=== PATIENT | female | born 1945 | race Two or more races ===

== ENCOUNTER → 2018-11-07 | Outpatient (CLI) | payer OTHER ==
[~2018-11-07] MED LIST: ASPI81CH43 PO; ASPIRIN; ATOR20TA50 PO; CAR3125T PO; CEPH-37 PO; CLOP75TA28 PO; ENA2.5T PO; VENL75CA3 PO
[2018-11-07 12:00] LABS: Basophils # (auto) 0 uL; Basophils % (auto) 0.8 % (0.0-2.0); Eosinophils # (auto) 0.3 uL; Eosinophils % (auto) 5.5 % (0.0-7.0); Hematocrit 38.5 % (36.0-46.0); Hemoglobin 12.8 g/dL (12.2-16.2); Lymphocytes # (auto) 0.9 uL; Lymphocytes % (auto) 17.2 % (10.0-50.0); Mean Corpuscular Hemoglobin 30.3 pg (28.0-32.0); Mean Corpuscular Hgb Conc. 33.2 g/dL (32.0-36.0); Mean Corpuscular Volume 91.1 fL (80.0-100.0); Monocytes # (auto) 0.4 uL; Monocytes % (auto) 8.2 % (0.0-12.0); Neutrophils # (auto) 3.6 uL; Neutrophils % (auto) 68.3 % (37.0-80.0); Nucleated Red Blood Cells % 0.4 %; Platelet Count (auto) 182 10^3/uL (140-450); Red Blood Cells 4.23 10^6/uL (4.0-5.20); Red Cell Distribution Width 14.5 % (11.8-14.3); White Blood Cell 5.3 10^3/uL (4.4-10.8)
[2018-11-07 12:05] LABS: Urine Blood 1+ /uL (Negative); Urine Specific Gravity 1.015 (1.001-1.035)
[2018-11-07 12:28] LABS: Potassium 3.8 mmol/L (3.5-5.1)
[2018-11-07 12:37] LABS: Free T4 (Free Thyroxine) 1.03 ng/dL (0.89-1.76)
[2018-11-07 12:40] LABS: Albumin 3.5 g/dL (3.4-5.0); BUN/Creatinine Ratio 22.4; Calcium 8.2 mg/dL (8.5-10.1)
[2018-11-07 13:58] LABS: Bilirubin, Total 0.4 mg/dL (0.2-1.0); Total Protein 7.8 g/dL (6.4-8.2)
== END | disposition home or self-care (01) ==
LOC: Rad HDHVI 08:41
PROVIDERS: ATTEND Internal Medicine
DX: R06.00 Dyspnea, unspecified (principal); E03.9 Hypothyroidism, unspecified; M46.00 Spinal enthesopathy, site unspecified; E11.9 Type 2 diabetes mellitus without complications; E55.9 Vitamin D deficiency, unspecified; D51.9 Vitamin B12 deficiency anemia, unspecified; N39.0 Urinary tract infection, site not specified
CPT/HCPCS: 36415; 71046; 80053; 80061; 81003; 82306; 82607; 83036; 84439; 84443; 85025; 87086

== ENCOUNTER 2018-12-22 18:09 | Inpatient (IN) | payer MEDICARE, OTHER | END 2018-12-26 18:30 | LOC: TELE 12-23 06:11 → ER 18:09 → TELE-EAST 12-23 09:14 | DX: N39.0 Urinary tract infection, site not specified (principal); E11.9 Type 2 diabetes mellitus without complications; R41.82 Altered mental status, unspecified; E78.00 Pure hypercholesterolemia, unspecified; R62.7 Adult failure to thrive; I10 Essential (primary) hypertension; Z79.02 Long term (current) use of antithrombotics/antiplatelets; Z79.82 Long term (current) use of aspirin; E66.9 Obesity, unspecified; Z68.25 Body mass index [BMI] 25.0-25.9, adult ==

== ENCOUNTER → 2019-01-13 | Outpatient (CLI) | payer MEDICARE, OTHER ==
[~2019-01-13] MED LIST changes: -ASPIRIN; -CEPH-37 PO
[2019-01-13 12:25] LABS: Basophils # (auto) 0 uL; Basophils % (auto) 0.7 % (0.0-2.0); Eosinophils # (auto) 0.2 uL; Eosinophils % (auto) 3.1 % (0.0-7.0); Hematocrit 42.5 % (36.0-46.0); Lymphocytes # (auto) 1.7 uL; Lymphocytes % (auto) 26.2 % (10.0-50.0); Mean Corpuscular Hemoglobin 30.2 pg (28.0-32.0); Mean Corpuscular Hgb Conc. 33.1 g/dL (32.0-36.0); Mean Corpuscular Volume 91.3 fL (80.0-100.0); Monocytes # (auto) 0.5 uL; Monocytes % (auto) 7.6 % (0.0-12.0); Neutrophils % (auto) 62.4 % (37.0-80.0); Nucleated Red Blood Cells % 0.2 %; Platelet Count (auto) 162 10^3/uL (140-450); Red Blood Cells 4.66 10^6/uL (4.0-5.20); Red Cell Distribution Width 14.7 % (11.8-14.3); White Blood Cell 6.4 10^3/uL (4.4-10.8)
[2019-01-13 12:35] LABS: Albumin 3.7 g/dL (3.4-5.0); BUN/Creatinine Ratio 21.1; Calcium 9.3 mg/dL (8.5-10.1); Potassium 4.5 mmol/L (3.5-5.1)
[2019-01-13 12:37] LABS: Bilirubin, Total 0.4 mg/dL (0.2-1.0); Total Protein 7.5 g/dL (6.4-8.2)
== END | disposition home or self-care (01) ==
LOC: LAB 09:26
PROVIDERS: ATTEND Internal Medicine
DX: D64.9 Anemia, unspecified (principal); I12.9 Hypertensive chronic kidney disease with stage 1 through stage 4 chronic kidney disease, or unspecified chronic kidney disease; N18.3 Chronic kidney disease, stage 3 (moderate)
CPT/HCPCS: 36415; 80053; 85025

== ENCOUNTER 2019-02-04 17:28 | Emergency (ER) | payer MEDICARE, OTHER ==
[~2019-02-04] VITALS: Ht 162.6 cm; Wt 69.9 kg
[2019-02-04 17:57] LABS: Basophils # (auto) 0.1 uL; Basophils % (auto) 0.7 % (0.0-2.0); Eosinophils # (auto) 0.2 uL; Eosinophils % (auto) 2.4 % (0.0-7.0); Hematocrit 43.7 % (36.0-46.0); Lymphocytes # (auto) 2.3 uL; Lymphocytes % (auto) 30.2 % (10.0-50.0); Mean Corpuscular Hgb Conc. 34.4 g/dL (32.0-36.0); Mean Corpuscular Volume 90.2 fL (80.0-100.0); Monocytes # (auto) 0.7 uL; Monocytes % (auto) 8.9 % (0.0-12.0); Neutrophils # (auto) 4.4 uL; Neutrophils % (auto) 57.8 % (37.0-80.0); Platelet Count (auto) 172 10^3/uL (140-450); Red Blood Cells 4.84 10^6/uL (4.0-5.20); Red Cell Distribution Width 14.5 % (11.8-14.3); White Blood Cell 7.6 10^3/uL (4.4-10.8)
[2019-02-04] MEDS ORDERED: SODIUM CHLORIDE 0.9% 1,000 ML IVB ONE (18:05)
[2019-02-04 18:14] LABS: Alanine Aminotransferase 25 U/L (13-56); Albumin 4.1 g/dL (3.4-5.0); Anion Gap 10 (5-15); Aspartate Aminotransferase 23 U/L (15-37); BUN/Creatinine Ratio 14.7; Blood Alcohol < 3.0 mg/dL (0-5); Blood Urea Nitrogen 15 mg/dL (7-18); Calcium 8.9 mg/dL (8.5-10.1); Carbon Dioxide 25 mmol/L (21-32); Chloride 104 mmol/L (98-107); GFR African American 68 mL/min; GFR Non-African American 56 mL/min; Glucose 147 mg/dL (74-106); Potassium 4.2 mmol/L (3.5-5.1); Sodium 139 mmol/L (136-145)
[2019-02-04 18:17] LABS: Alkaline Phosphatase 96 U/L (45-117); Bilirubin, Total 0.7 mg/dL (0.2-1.0); Total Protein 8.4 g/dL (6.4-8.2)
[2019-02-04 18:51] LABS: Partial Thromboplastin Time 24.6 sec (23.64-32.05)
[2019-02-04 18:58] LABS: Alcohol, Urine < 3.0 mg/dL (0-5); Amphetamine Screen, Urine NEGATIVE (NEGATIVE); Barbiturate Scree,Urine NEGATIVE (NEGATIVE); Benzodiazephine Screen, Urine NEGATIVE (NEGATIVE); Cannabinoid Screen, Urine NEGATIVE (NEGATIVE); Cocaine Screen, Urine NEGATIVE (NEGATIVE); Opiate Scree,Urine NEGATIVE (NEGATIVE); Phencyclidine Screen, Urine NEGATIVE (NEGATIVE)
[2019-02-04 19:02] LABS: Urine Bacteria NONE SEEN /hpf (None Seen); Urine Blood Negative /uL (Negative); Urine Hyaline Cast FEW /lpf (0 - 2); Urine Specific Gravity 1.013 (1.001-1.035); Urine WBC 11 /hpf (0 - 5)
[2019-02-04] MEDS ORDERED: cefTRIAXone 1GM/50ML D5W 50 ML IV ONE (19:15)
[2019-02-04 20:08] VITALS: BP 149/70
== END 2019-02-04 22:21 | disposition home or self-care (01) ==
LOC: ER 17:35
DX: F41.9 Anxiety disorder, unspecified (principal); N39.0 Urinary tract infection, site not specified; F32.9 Major depressive disorder, single episode, unspecified; R41.0 Disorientation, unspecified; I25.10 Atherosclerotic heart disease of native coronary artery without angina pectoris; E11.9 Type 2 diabetes mellitus without complications; E78.5 Hyperlipidemia, unspecified; I10 Essential (primary) hypertension; Z98.61 Coronary angioplasty status; Z87.891 Personal history of nicotine dependence
CPT/HCPCS: 36415; 70450; 71045; 80053; 80307; 80320; 81001; 83735; 84484; 85025; 85610; 85730; 93005; 94761; 96361; 96365; 99284; J0696

== ENCOUNTER → 2019-03-04 | Outpatient (CLI) | payer MEDICARE, OTHER ==
[2019-03-04 12:09] LABS: Urine Blood 1+ /uL (Negative); Urine Specific Gravity 1.022 (1.001-1.035)
== END | disposition home or self-care (01) ==
LOC: LAB 09:30
PROVIDERS: ATTEND Internal Medicine
DX: N39.0 Urinary tract infection, site not specified (principal)
CPT/HCPCS: 81003; 87086

== ENCOUNTER → 2019-03-09 | Outpatient (CLI) | payer MEDICARE, OTHER ==
[2019-03-09 16:19] LABS: Urine Blood Negative /uL (Negative)
== END | disposition home or self-care (01) ==
LOC: LAB 11:51
PROVIDERS: ATTEND Internal Medicine
DX: N39.0 Urinary tract infection, site not specified (principal)
CPT/HCPCS: 81003; 87086; 87088

== ENCOUNTER → 2019-09-07 | Outpatient (CLI) | payer MEDICARE, OTHER ==
[~2019-09-07] MED LIST changes: -ENA2.5T PO; +ENAL2.5T2 PO
[2019-09-07 11:56] LABS: Basophils # (auto) 0 uL; Basophils % (auto) 0.8 % (0.0-2.0); Eosinophils # (auto) 0.2 uL; Eosinophils % (auto) 3.4 % (0.0-7.0); Hematocrit 41.6 % (36.0-46.0); Hemoglobin 13.8 g/dL (12.2-16.2); Lymphocytes # (auto) 1.6 uL; Mean Corpuscular Hemoglobin 31.4 pg (28.0-32.0); Mean Corpuscular Hgb Conc. 33.1 g/dL (32.0-36.0); Mean Corpuscular Volume 94.8 fL (80.0-100.0); Monocytes # (auto) 0.6 uL; Monocytes % (auto) 9.9 % (0.0-12.0); Neutrophils # (auto) 3.8 uL; Neutrophils % (auto) 60.9 % (37.0-80.0); Platelet Count (auto) 180 10^3/uL (140-450); Red Blood Cells 4.39 10^6/uL (4.0-5.20); Red Cell Distribution Width 15.6 % (11.8-14.3); White Blood Cell 6.3 10^3/uL (4.4-10.8)
[2019-09-07 12:12] LABS: Albumin 3.8 g/dL (3.4-5.0); Calcium 9.2 mg/dL (8.5-10.1); Potassium 4.4 mmol/L (3.5-5.1)
[2019-09-07 12:14] LABS: Free T4 (Free Thyroxine) 1.03 ng/dL (0.89-1.76)
[2019-09-07 12:17] LABS: BUN/Creatinine Ratio 16.7; Bilirubin, Total 0.4 mg/dL (0.2-1.0); Total Protein 7.5 g/dL (6.4-8.2)
[2019-09-07 12:21] LABS: Urine Specific Gravity 1.015 (1.001-1.035)
[2019-09-07 12:22] LABS: Urine Blood Negative /uL (Negative)
== END | disposition home or self-care (01) ==
LOC: LAB 08:33
PROVIDERS: ATTEND Internal Medicine
DX: E03.9 Hypothyroidism, unspecified (principal); K90.9 Intestinal malabsorption, unspecified; N39.0 Urinary tract infection, site not specified; D51.9 Vitamin B12 deficiency anemia, unspecified; E11.42 Type 2 diabetes mellitus with diabetic polyneuropathy; Z79.899 Other long term (current) drug therapy
CPT/HCPCS: 36415; 80053; 80061; 81003; 82306; 82607; 83036; 84439; 84443; 85025

== ENCOUNTER → 2019-10-16 | Outpatient (CLI) | payer MEDICARE, OTHER | END | disposition home or self-care (01) | LOC: Rad HDHVI 10:51 | PROVIDERS: ATTEND Internal Medicine | DX: I70.0 Atherosclerosis of aorta (principal); M85.80 Other specified disorders of bone density and structure, unspecified site; R06.02 Shortness of breath; E11.9 Type 2 diabetes mellitus without complications; Z90.49 Acquired absence of other specified parts of digestive tract | CPT/HCPCS: 71046 ==

== ENCOUNTER → 2020-03-01 | Outpatient (CLI) | payer MEDICARE, OTHER ==
[2020-03-01 11:23] LABS: Basophils # (auto) 0 10 ^3/uL (0-0.2); Basophils % (auto) 0.8 % (0.0-2.0); Eosinophils # (auto) 0.2 10 ^3/uL (0-0.8); Eosinophils % (auto) 3.7 % (0.0-7.0); Lymphocytes # (auto) 1.2 10 ^3/uL (0.4-5.4); Lymphocytes % (auto) 20.2 % (10.0-50.0); Mean Corpuscular Hemoglobin 30.5 pg (28.0-32.0); Mean Corpuscular Hgb Conc. 32.4 g/dL (32.0-36.0); Mean Corpuscular Volume 94.2 fL (80.0-100.0); Monocytes # (auto) 0.5 10 ^3/uL (0-1.3); Monocytes % (auto) 8.2 % (0.0-12.0); Neutrophils # (auto) 3.8 10 ^3/uL (1.6-8.6); Neutrophils % (auto) 67.1 % (37.0-80.0); Platelet Count (auto) 160 10^3/uL (140-450); Red Blood Cells 4.25 10^6/uL (4.0-5.20); Red Cell Distribution Width 15.5 % (11.8-14.3); White Blood Cell 5.7 10^3/uL (4.4-10.8)
[2020-03-01 11:25] LABS: Urine Blood Negative /uL (Negative); Urine Specific Gravity 1.022 (1.001-1.035)
[2020-03-01 11:59] LABS: Albumin 3.5 g/dL (3.4-5.0); Calcium 8.5 mg/dL (8.5-10.1); Potassium 4.6 mmol/L (3.5-5.1)
[2020-03-01 12:04] LABS: BUN/Creatinine Ratio 18.5; Bilirubin, Total 0.5 mg/dL (0.2-1.0); Total Protein 7.1 g/dL (6.4-8.2)
== END | disposition home or self-care (01) ==
LOC: LAB 10:30
PROVIDERS: ATTEND Internal Medicine
DX: I10 Essential (primary) hypertension (principal)
CPT/HCPCS: 36415; 80053; 81003; 85025

== ENCOUNTER → 2020-03-30 | Outpatient (CLI) | payer MEDICARE, OTHER ==
[~2020-03-30] MED LIST changes: +ENAL2.5T11 PO; -ENAL2.5T2 PO
[2020-03-30 10:17] LABS: Basophils # (auto) 0.1 10 ^3/uL (0-0.2); Basophils % (auto) 0.8 % (0.0-2.0); Eosinophils # (auto) 0.2 10 ^3/uL (0-0.8); Eosinophils % (auto) 3.8 % (0.0-7.0); Hematocrit 37.4 % (36.0-46.0); Hemoglobin 12.2 g/dL (12.2-16.2); Lymphocytes # (auto) 1.6 10 ^3/uL (0.4-5.4); Mean Corpuscular Hemoglobin 30.5 pg (28.0-32.0); Mean Corpuscular Hgb Conc. 32.6 g/dL (32.0-36.0); Mean Corpuscular Volume 93.3 fL (80.0-100.0); Monocytes # (auto) 0.7 10 ^3/uL (0-1.3); Monocytes % (auto) 10.7 % (0.0-12.0); Neutrophils # (auto) 3.9 10 ^3/uL (1.6-8.6); Neutrophils % (auto) 60.7 % (37.0-80.0); Platelet Count (auto) 151 10^3/uL (140-450); Red Cell Distribution Width 15.1 % (11.8-14.3); White Blood Cell 6.5 10^3/uL (4.4-10.8)
[2020-03-30 10:39] LABS: Calcium 8.5 mg/dL (8.5-10.1); Potassium 4.3 mmol/L (3.5-5.1)
[2020-03-30 10:41] LABS: BUN/Creatinine Ratio 27.8; INR 1.05 (0.9-1.15); Partial Thromboplastin Time 25.4 sec (23.0-31.2)
[2020-03-30 11:17] LABS: Urine Blood Negative /uL (Negative); Urine Specific Gravity 1.033 (1.001-1.035)
== END | disposition home or self-care (01) ==
LOC: LAB 09:26
PROVIDERS: ATTEND Internal Medicine
DX: Z01.812 Encounter for preprocedural laboratory examination (principal); D64.9 Anemia, unspecified; N39.0 Urinary tract infection, site not specified; I25.10 Atherosclerotic heart disease of native coronary artery without angina pectoris; I10 Essential (primary) hypertension; K90.9 Intestinal malabsorption, unspecified; Z95.5 Presence of coronary angioplasty implant and graft; Z79.02 Long term (current) use of antithrombotics/antiplatelets
CPT/HCPCS: 36415; 80048; 81003; 85025; 85610; 85730

== ENCOUNTER → 2020-05-03 | Outpatient (CLI) | payer MEDICARE, OTHER | END | disposition home or self-care (01) | LOC: Rad HDHVI 15:27 | PROVIDERS: ATTEND Internal Medicine | DX: I08.0 Rheumatic disorders of both mitral and aortic valves (principal); I25.10 Atherosclerotic heart disease of native coronary artery without angina pectoris; I73.9 Peripheral vascular disease, unspecified; R06.02 Shortness of breath | CPT/HCPCS: 93306 ==

== ENCOUNTER → 2020-05-11 | Outpatient (CLI) | payer MEDICARE, OTHER ==
[~2020-05-11] VITALS: Ht 162.6 cm; Wt 53.5 kg
[~2020-05-11] MED LIST changes: +ADENOSINE 45 MG in GIVE UN-DILUTED 0 ML IV ONE; +ADENOSINE 90 MG/30 ML INJ IV ONE
== END | disposition home or self-care (01) ==
LOC: Rad HDHVI 09:37
PROVIDERS: ATTEND Internal Medicine
DX: I25.10 Atherosclerotic heart disease of native coronary artery without angina pectoris (principal); I10 Essential (primary) hypertension; E78.00 Pure hypercholesterolemia, unspecified; E11.9 Type 2 diabetes mellitus without complications
CPT/HCPCS: 78452; 93005; 96374; 96375; A9500; J0153

== ENCOUNTER → 2021-02-16 | Outpatient (CLI) | payer MEDICARE, OTHER ==
[~2021-02-16] MED LIST changes: -ADENOSINE 45 MG in GIVE UN-DILUTED 0 ML IV ONE; -ADENOSINE 90 MG/30 ML INJ IV ONE
== END | disposition home or self-care (01) ==
LOC: Rad HDHVI 13:04
PROVIDERS: ATTEND Internal Medicine
DX: I35.1 Nonrheumatic aortic (valve) insufficiency (principal); I11.9 Hypertensive heart disease without heart failure; R06.02 Shortness of breath
CPT/HCPCS: 93306

== ENCOUNTER → 2021-03-03 | Outpatient (CLI) | payer MEDICARE, OTHER ==
[2021-03-03 11:48] LABS: Urine Blood Negative /uL (Negative); Urine Specific Gravity 1.012 (1.001-1.035)
[2021-03-03 11:53] LABS: Basophils # (auto) 0.1 10 ^3/uL (0-0.2); Basophils % (auto) 0.9 % (0.0-2.0); Eosinophils # (auto) 0.2 10 ^3/uL (0-0.8); Eosinophils % (auto) 3.5 % (0.0-7.0); Hematocrit 35.6 % (36.0-46.0); Hemoglobin 11.9 g/dL (12.2-16.2); Lymphocytes # (auto) 1.5 10 ^3/uL (0.4-5.4); Lymphocytes % (auto) 22.3 % (10.0-50.0); Mean Corpuscular Hemoglobin 30.7 pg (28.0-32.0); Mean Corpuscular Hgb Conc. 33.5 g/dL (32.0-36.0); Mean Corpuscular Volume 91.7 fL (80.0-100.0); Monocytes # (auto) 0.6 10 ^3/uL (0-1.3); Monocytes % (auto) 9.5 % (0.0-12.0); Neutrophils # (auto) 4.3 10 ^3/uL (1.6-8.6); Neutrophils % (auto) 63.8 % (37.0-80.0); Nucleated Red Blood Cells % 0.1 %; Platelet Count (auto) 200 10^3/uL (140-450); Red Blood Cells 3.88 10^6/uL (4.0-5.20); Red Cell Distribution Width 15.1 % (11.8-14.3); White Blood Cell 6.7 10^3/uL (4.4-10.8)
[2021-03-03 11:57] LABS: Potassium 4.2 mmol/L (3.5-5.1)
[2021-03-03 12:05] LABS: Albumin 3.5 g/dL (3.4-5.0); BUN/Creatinine Ratio 20.6; Bilirubin, Total 0.4 mg/dL (0.2-1.0); Calcium 8.6 mg/dL (8.5-10.1); Free T4 (Free Thyroxine) 1.18 ng/dL (0.89-1.76); Total Protein 7.4 g/dL (6.4-8.2)
== END | disposition home or self-care (01) ==
LOC: CHF HDHVI 08:42
PROVIDERS: ATTEND Internal Medicine Cardiovascular Disease
DX: D51.3 Other dietary vitamin B12 deficiency anemia (principal); I10 Essential (primary) hypertension; E11.9 Type 2 diabetes mellitus without complications; E55.9 Vitamin D deficiency, unspecified; D64.9 Anemia, unspecified; R00.2 Palpitations; R53.1 Weakness; R30.0 Dysuria
CPT/HCPCS: 36415; 80053; 80061; 81003; 82306; 82607; 83036; 84439; 84443; 85025; 85049; 87086

== ENCOUNTER → 2021-03-14 | Outpatient (CLI) | payer MEDICARE, OTHER | END | disposition home or self-care (01) | LOC: LAB 11:34 | PROVIDERS: ATTEND Internal Medicine | DX: R94.4 Abnormal results of kidney function studies (principal) | CPT/HCPCS: 36415; 82565 ==

== ENCOUNTER → 2021-03-15 | Outpatient (CLI) | payer MEDICARE, OTHER ==
[~2021-03-15] MED LIST changes: +IOHEXOL 350 MG/ML 100ML IJ ONE
[2021-03-15 13:10] VITALS: BP 108/38
[2021-03-15 13:32] VITALS: BP 111/41
== END | disposition home or self-care (01) ==
LOC: Rad HDHVI 13:03
PROVIDERS: ATTEND Internal Medicine
DX: I67.2 Cerebral atherosclerosis (principal); G31.89 Other specified degenerative diseases of nervous system; G96.9 Disorder of central nervous system, unspecified
CPT/HCPCS: 70470; G0463; Q9967

== ENCOUNTER → 2021-07-25 | Outpatient (CLI) | payer MEDICARE, OTHER ==
[~2021-07-25] MED LIST changes: -IOHEXOL 350 MG/ML 100ML IJ ONE
== END | disposition home or self-care (01) ==
LOC: LAB 10:55
PROVIDERS: ATTEND Internal Medicine
DX: N39.0 Urinary tract infection, site not specified (principal)
CPT/HCPCS: 87086

== ENCOUNTER → 2021-11-02 | Outpatient (CLI) | payer MEDICARE, OTHER ==
[2021-11-03 15:35] LABS: Urine Blood Negative /uL (Negative); Urine Specific Gravity 1.012 (1.001-1.035)
== END | disposition home or self-care (01) ==
LOC: LAB 10:55
PROVIDERS: ATTEND Internal Medicine
DX: N39.0 Urinary tract infection, site not specified (principal)
CPT/HCPCS: 81003; 87086

== ENCOUNTER 2021-11-19 19:57 | Inpatient (IN) | payer MEDICARE, OTHER ==
[~2021-11-19] VITALS: Ht 162.6 cm; Wt 62.8 kg
[2021-11-19 23:56] LABS: Basophils # (auto) 0.1 10 ^3/uL (0-0.2); Basophils % (auto) 0.7 % (0.0-2.0); Eosinophils # (auto) 0.2 10 ^3/uL (0-0.8); Eosinophils % (auto) 2.5 % (0.0-7.0); Hematocrit 31.5 % (36.0-46.0); Hemoglobin 10.4 g/dL (12.2-16.2); Lymphocytes # (auto) 1.5 10 ^3/uL (0.4-5.4); Lymphocytes % (auto) 19.3 % (10.0-50.0); Mean Corpuscular Hemoglobin 28.4 pg (28.0-32.0); Mean Corpuscular Hgb Conc. 33.1 g/dL (32.0-36.0); Mean Corpuscular Volume 85.9 fL (80.0-100.0); Monocytes # (auto) 0.7 10 ^3/uL (0-1.3); Monocytes % (auto) 9.1 % (0.0-12.0); Neutrophils # (auto) 5.5 10 ^3/uL (1.6-8.6); Neutrophils % (auto) 68.4 % (37.0-80.0); Red Blood Cells 3.66 10^6/uL (4.0-5.20); Red Cell Distribution Width 15.3 % (11.8-14.3)
[2021-11-20 00:16] LABS: Chloride 111 mmol/L (98-107); Potassium 4.6 mmol/L (3.5-5.1); Sodium 140 mmol/L (136-145)
[2021-11-20 00:18] LABS: Lactic Acid w/Reflex 4.3 mmol/L (0.4-2.0)
[2021-11-20 00:20] LABS: Alanine Aminotransferase 29 U/L (13-56); Albumin 3.2 g/dL (3.4-5.0); Anion Gap 6 (5-15); Aspartate Aminotransferase 30 U/L (15-37); Blood Alcohol < 3.0 mg/dL (0-5); Blood Urea Nitrogen 23 mg/dL (7-18); Carbon Dioxide 23 mmol/L (21-32); GFR African American 72 mL/min; GFR Non-African American 60 mL/min; Glucose 94 mg/dL (74-106)
[2021-11-20 00:23] LABS: Alkaline Phosphatase 60 U/L (45-117); Bilirubin, Total 0.2 mg/dL (0.2-1.0); Total Protein 6.4 g/dL (6.4-8.2)
[2021-11-20 00:38] LABS: Urine Bacteria FEW /hpf (None Seen); Urine Blood Negative /uL (Negative); Urine Hyaline Cast FEW /lpf (0 - 2); Urine Mucus FEW (None Seen); Urine Specific Gravity 1.026 (1.001-1.035); Urine WBC 1 /hpf (0 - 5)
[2021-11-20] MEDS ORDERED: SODIUM CHLORIDE 0.9% 1,000 ML IV ONE ×3 (00:45→10:30)
[2021-11-20] MEDS ORDERED: PIPERACILLIN-TAZOB 3.375GM 100 ML IV ONE (04:30)
[2021-11-20] MEDS ORDERED: ONDANSETRON HCL 4 MG/2 ML VIAL IV PRN (05:30)
[2021-11-20] MEDS ORDERED: MORPHINE SULFATE INJECTION 2 MG/ML SYRG IV PRN (05:30)
[2021-11-20] MEDS ORDERED: NITROGLYCERIN 0.4 MG SL TAB SL PRN (05:30)
[2021-11-20] MEDS ORDERED: DEXTROSE (50%) 50ML SYRG IV PRN (05:30)
[2021-11-20] MEDS ORDERED: cloNIDine HCL 0.1 MG TAB PO PRN (05:30)
[2021-11-20] MEDS: ACCU-CHEK COMFORT CURVE STRIP VI SCH ×4 (07:42→23:03)
[2021-11-20] MEDS: InsuLIN REG 1unit/0.01ml Soln (100units/ml) SC SCH ×4 (07:43→23:04)
[2021-11-20 10:17] VITALS: BP 141/48
[2021-11-20 11:14] VITALS: BP 141/48
[2021-11-20] MEDS: CARVEDILOL 3.125 MG TAB PO SCH ×2 (12:40→23:02)
[2021-11-20] MEDS: cefTRIAXone 1GM/50ML D5W 50 ML IV SCH (12:41)
[2021-11-20] MEDS: ENOXAPARIN SOD 40 MG/0.4 ML SYRINGE SC SCH (12:41)
[2021-11-20] MEDS: CLOPIDOGREL BISULFATE 75 MG TAB PO SCH (12:41)
[2021-11-20] MEDS: PANTOPRAZOLE 40 MG TAB PO SCH (12:41)
[2021-11-20] MEDS: ENALAPRIL MALEATE 2.5 MG TAB PO SCH ×2 (12:43→23:03)
[2021-11-20 13:00] VITALS: BP 141/62
[2021-11-20 17:00] VITALS: BP 118/49
[2021-11-20 20:00] VITALS: BP 132/62
[2021-11-20 21:48] VITALS: BP 132/62
[2021-11-20] MEDS: DONEPEZIL HYDROCHLORIDE 5 MG TAB PO SCH (23:01)
[2021-11-20] MEDS: ATORVASTATIN 20 MG TAB PO SCH (23:02)
[2021-11-21] VITALS (7 sets, daily range): BP systolic 125–148; BP diastolic 49–75
[2021-11-21 05:06] LABS: Basophils # (auto) 0.1 10 ^3/uL (0-0.2); Basophils % (auto) 0.9 % (0.0-2.0); Eosinophils # (auto) 0.2 10 ^3/uL (0-0.8); Hematocrit 28.4 % (36.0-46.0); Hemoglobin 9.6 g/dL (12.2-16.2); Lymphocytes # (auto) 1.4 10 ^3/uL (0.4-5.4); Lymphocytes % (auto) 23.8 % (10.0-50.0); Mean Corpuscular Hemoglobin 28.7 pg (28.0-32.0); Mean Corpuscular Hgb Conc. 33.9 g/dL (32.0-36.0); Mean Corpuscular Volume 84.8 fL (80.0-100.0); Monocytes # (auto) 0.6 10 ^3/uL (0-1.3); Monocytes % (auto) 10.5 % (0.0-12.0); Neutrophils # (auto) 3.5 10 ^3/uL (1.6-8.6); Neutrophils % (auto) 60.8 % (37.0-80.0); Nucleated Red Blood Cells % 0.1 %; Red Blood Cells 3.35 10^6/uL (4.0-5.20); Red Cell Distribution Width 15.5 % (11.8-14.3); White Blood Cell 5.7 10^3/uL (4.4-10.8)
[2021-11-21 05:35] LABS: Potassium 3.7 mmol/L (3.5-5.1)
[2021-11-21 05:39] LABS: BUN/Creatinine Ratio 17.8; Calcium 8.5 mg/dL (8.5-10.1)
[2021-11-21] MEDS: ACCU-CHEK COMFORT CURVE STRIP VI SCH ×4 (06:15→21:58)
[2021-11-21] MEDS: InsuLIN REG 1unit/0.01ml Soln (100units/ml) SC SCH ×4 (06:15→21:53)
[2021-11-21] MEDS: cefTRIAXone 1GM/50ML D5W 50 ML IV SCH (09:54)
[2021-11-21] MEDS: ENOXAPARIN SOD 40 MG/0.4 ML SYRINGE SC SCH (09:55)
[2021-11-21] MEDS: PANTOPRAZOLE 40 MG TAB PO SCH (09:55)
[2021-11-21] MEDS: ENALAPRIL MALEATE 2.5 MG TAB PO SCH ×2 (10:03→21:55)
[2021-11-21] MEDS: CLOPIDOGREL BISULFATE 75 MG TAB PO SCH (10:05)
[2021-11-21] MEDS: CARVEDILOL 3.125 MG TAB PO SCH ×2 (10:05→21:55)
[2021-11-21] MEDS ORDERED: LORazepam 2MG/ML-1ML VIAL IV PRN (20:00)
[2021-11-21 20:48] LABS: Folate (Folic Acid) 18.44 ng/mL (5.38-24)
[2021-11-21] MEDS: ATORVASTATIN 20 MG TAB PO SCH (21:54)
[2021-11-21] MEDS: DONEPEZIL HYDROCHLORIDE 5 MG TAB PO SCH (21:54)
[2021-11-22 05:32] VITALS: BP 137/46
[2021-11-22] MEDS: ACCU-CHEK COMFORT CURVE STRIP VI SCH ×4 (06:09→21:12)
[2021-11-22] MEDS: InsuLIN REG 1unit/0.01ml Soln (100units/ml) SC SCH ×4 (06:10→21:57)
[2021-11-22 06:23] LABS: Basophils # (auto) 0.1 10 ^3/uL (0-0.2); Basophils % (auto) 0.8 % (0.0-2.0); Eosinophils # (auto) 0.3 10 ^3/uL (0-0.8); Eosinophils % (auto) 4.5 % (0.0-7.0); Hematocrit 28.4 % (36.0-46.0); Hemoglobin 9.7 g/dL (12.2-16.2); Lymphocytes # (auto) 1.3 10 ^3/uL (0.4-5.4); Lymphocytes % (auto) 18.6 % (10.0-50.0); Mean Corpuscular Hemoglobin 28.7 pg (28.0-32.0); Mean Corpuscular Hgb Conc. 34.1 g/dL (32.0-36.0); Mean Corpuscular Volume 84.1 fL (80.0-100.0); Monocytes # (auto) 0.8 10 ^3/uL (0-1.3); Monocytes % (auto) 11.3 % (0.0-12.0); Neutrophils # (auto) 4.5 10 ^3/uL (1.6-8.6); Neutrophils % (auto) 64.8 % (37.0-80.0); Nucleated Red Blood Cells % 0.1 %; Red Blood Cells 3.38 10^6/uL (4.0-5.20); Red Cell Distribution Width 15.7 % (11.8-14.3)
[2021-11-22 06:43] LABS: Calcium 8.6 mg/dL (8.5-10.1); Potassium 3.9 mmol/L (3.5-5.1)
[2021-11-22 06:46] LABS: BUN/Creatinine Ratio 17.2
[2021-11-22 08:00] VITALS: BP 133/52
[2021-11-22 09:00] VITALS: BP 133/52
[2021-11-22] MEDS: cefTRIAXone 1GM/50ML D5W 50 ML IV SCH ×2 (10:13→11:13)
[2021-11-22] MEDS: CLOPIDOGREL BISULFATE 75 MG TAB PO SCH (10:14)
[2021-11-22] MEDS: PANTOPRAZOLE 40 MG TAB PO SCH (10:14)
[2021-11-22] MEDS: ENOXAPARIN SOD 40 MG/0.4 ML SYRINGE SC SCH (10:14)
[2021-11-22] MEDS: CARVEDILOL 3.125 MG TAB PO SCH ×2 (10:15→21:55)
[2021-11-22] MEDS: ENALAPRIL MALEATE 2.5 MG TAB PO SCH ×2 (10:15→21:55)
[2021-11-22 12:23] VITALS: BP 113/61
[2021-11-22 17:14] VITALS: BP 113/60
[2021-11-22] MEDS: DONEPEZIL HYDROCHLORIDE 5 MG TAB PO SCH (21:54)
[2021-11-22] MEDS: ATORVASTATIN 20 MG TAB PO SCH (21:54)
[2021-11-22 22:00] VITALS: BP 135/48
[2021-11-23 05:00] VITALS: BP 127/46
[2021-11-23 06:00] LABS: Basophils # (auto) 0 10 ^3/uL (0-0.2); Basophils % (auto) 0.5 % (0.0-2.0); Eosinophils # (auto) 0.3 10 ^3/uL (0-0.8); Eosinophils % (auto) 4.1 % (0.0-7.0); Hematocrit 27.7 % (36.0-46.0); Hemoglobin 9.3 g/dL (12.2-16.2); Lymphocytes # (auto) 1.4 10 ^3/uL (0.4-5.4); Lymphocytes % (auto) 22.5 % (10.0-50.0); Mean Corpuscular Hemoglobin 28.5 pg (28.0-32.0); Mean Corpuscular Hgb Conc. 33.7 g/dL (32.0-36.0); Mean Corpuscular Volume 84.7 fL (80.0-100.0); Monocytes # (auto) 0.7 10 ^3/uL (0-1.3); Monocytes % (auto) 10.9 % (0.0-12.0); Red Blood Cells 3.27 10^6/uL (4.0-5.20); Red Cell Distribution Width 15.8 % (11.8-14.3); White Blood Cell 6.4 10^3/uL (4.4-10.8)
[2021-11-23] MEDS: InsuLIN REG 1unit/0.01ml Soln (100units/ml) SC SCH (06:14)
[2021-11-23] MEDS: ACCU-CHEK COMFORT CURVE STRIP VI SCH (06:14)
[2021-11-23 06:16] LABS: Calcium 8.4 mg/dL (8.5-10.1); Potassium 3.7 mmol/L (3.5-5.1)
[2021-11-23 08:00] VITALS: BP 100/42
[2021-11-23 09:00] VITALS: BP 100/42
[2021-11-23] MEDS: ENALAPRIL MALEATE 2.5 MG TAB PO SCH (10:00)
[2021-11-23] MEDS: CARVEDILOL 3.125 MG TAB PO SCH (10:00)
[2021-11-23] MEDS: CLOPIDOGREL BISULFATE 75 MG TAB PO SCH (10:24)
[2021-11-23] MEDS: PANTOPRAZOLE 40 MG TAB PO SCH (10:25)
[2021-11-23] MEDS: ENOXAPARIN SOD 40 MG/0.4 ML SYRINGE SC SCH (11:14)
[2021-11-23 14:00] VITALS: BP 102/35
== END 2021-11-23 15:10 | disposition home or self-care (01) | DRG 204 ==
LOC: EDBD 19:57 → ER 19:58 → TELE 11-20 05:18 → TELE-CENTR 11-20 09:10
PROVIDERS: ADMIT Nurse Practitioner; ATTEND Internal Medicine Pulmonary Disease
DX: R55 Syncope and collapse (principal); G93.40 Encephalopathy, unspecified; E44.0 Moderate protein-calorie malnutrition; F03.90 Unspecified dementia, unspecified severity, without behavioral disturbance, psychotic disturbance, mood disturbance, and anxiety; E11.9 Type 2 diabetes mellitus without complications; N39.0 Urinary tract infection, site not specified; E78.5 Hyperlipidemia, unspecified; I25.10 Atherosclerotic heart disease of native coronary artery without angina pectoris; K42.9 Umbilical hernia without obstruction or gangrene; W18.2XXA Fall in (into) shower or empty bathtub, initial encounter; Z20.822 Contact with and (suspected) exposure to COVID-19; I10 Essential (primary) hypertension; Z83.3 Family history of diabetes mellitus; Z90.49 Acquired absence of other specified parts of digestive tract; Z90.710 Acquired absence of both cervix and uterus; Y93.89 Activity, other specified; Y92.89 Other specified places as the place of occurrence of the external cause; Y99.8 Other external cause status; Z68.23 Body mass index [BMI] 23.0-23.9, adult
CPT/HCPCS: 36415; 70450; 70551; 71045; 72125; 74177; 80048; 80053; 80320; 81001; 82607; 82746; 82962; 83605; 83735; 84443; 84484; 85025; 87040; 93005; 93306; 93886; 95819; 96361; 96365; G0378; J0696; J1815; J2543

== ENCOUNTER → 2022-03-14 | Outpatient (CLI) | payer MEDICARE, OTHER ==
[2022-03-14 11:53] LABS: Urine Bacteria MOD /hpf (None Seen); Urine Blood Negative /uL (Negative); Urine Hyaline Cast MOD /lpf (0 - 2); Urine Mucus FEW (None Seen); Urine Specific Gravity 1.023 (1.001-1.035); Urine WBC 158 /hpf (0 - 5)
== END | disposition home or self-care (01) ==
LOC: LAB 10:50
PROVIDERS: ATTEND Internal Medicine
DX: N39.0 Urinary tract infection, site not specified (principal)
CPT/HCPCS: 81001; 87086

== ENCOUNTER → 2022-03-29 | Outpatient (CLI) | payer MEDICARE, OTHER ==
[2022-03-29 16:28] LABS: Basophils # (auto) 0 10 ^3/uL (0-0.2); Basophils % (auto) 0.7 % (0.0-2.0); Eosinophils # (auto) 0.2 10 ^3/uL (0-0.8); Eosinophils % (auto) 3.6 % (0.0-7.0); Hematocrit 34.8 % (36.0-46.0); Lymphocytes # (auto) 1.5 10 ^3/uL (0.4-5.4); Lymphocytes % (auto) 24.9 % (10.0-50.0); Mean Corpuscular Hemoglobin 28.1 pg (28.0-32.0); Mean Corpuscular Hgb Conc. 31.7 g/dL (32.0-36.0); Mean Corpuscular Volume 88.4 fL (80.0-100.0); Monocytes # (auto) 0.5 10 ^3/uL (0-1.3); Monocytes % (auto) 8.6 % (0.0-12.0); Neutrophils # (auto) 3.7 10 ^3/uL (1.6-8.6); Neutrophils % (auto) 62.2 % (37.0-80.0); Nucleated Red Blood Cells % 0.1 %; Red Blood Cells 3.93 10^6/uL (4.0-5.20); Red Cell Distribution Width 18.8 % (11.8-14.3)
[2022-03-29 16:42] LABS: Albumin 3.5 g/dL (3.4-5.0); Calcium 9.2 mg/dL (8.5-10.1); Potassium 4.5 mmol/L (3.5-5.1)
[2022-03-29 16:45] LABS: BUN/Creatinine Ratio 24.5; Bilirubin, Total 0.5 mg/dL (0.2-1.0); Total Protein 6.8 g/dL (6.4-8.2)
== END | disposition home or self-care (01) ==
LOC: LAB 11:55
PROVIDERS: ATTEND Internal Medicine
DX: N39.0 Urinary tract infection, site not specified (principal); I10 Essential (primary) hypertension; D64.9 Anemia, unspecified
CPT/HCPCS: 36415; 80053; 85025

== ENCOUNTER → 2022-04-12 | Outpatient (CLI) | payer MEDICARE, OTHER ==
[2022-04-12 11:55] VITALS: BP 132/44
[2022-04-12 12:10] VITALS: BP 131/50
== END | disposition home or self-care (01) ==
LOC: CHF HDHVI 11:58
PROVIDERS: ATTEND Internal Medicine
DX: I10 Essential (primary) hypertension (principal)
CPT/HCPCS: G0463

== ENCOUNTER 2022-06-11 09:09 | Inpatient (IN) | payer MEDICARE, OTHER ==
[~2022-06-11] VITALS: Ht 152.4 cm; Wt 61.3 kg
[2022-06-11 11:00] LABS: Urine Bacteria MANY /hpf (None Seen); Urine Blood Negative /uL (Negative); Urine Mucus FEW (None Seen); Urine Specific Gravity 1.022 (1.001-1.035); Urine WBC 19 /hpf (0 - 5)
[2022-06-11 11:16] LABS: Basophils # (auto) 0.1 10 ^3/uL (0-0.2); Basophils % (auto) 0.8 % (0.0-2.0); Eosinophils # (auto) 0.1 10 ^3/uL (0-0.8); Eosinophils % (auto) 1.8 % (0.0-7.0); Hematocrit 33.7 % (36.0-46.0); Hemoglobin 10.9 g/dL (12.2-16.2); Lymphocytes # (auto) 1.4 10 ^3/uL (0.4-5.4); Lymphocytes % (auto) 20.4 % (10.0-50.0); Mean Corpuscular Hemoglobin 28.7 pg (28.0-32.0); Mean Corpuscular Hgb Conc. 32.4 g/dL (32.0-36.0); Mean Corpuscular Volume 88.6 fL (80.0-100.0); Monocytes # (auto) 0.5 10 ^3/uL (0-1.3); Monocytes % (auto) 6.8 % (0.0-12.0); Neutrophils # (auto) 4.7 10 ^3/uL (1.6-8.6); Neutrophils % (auto) 70.2 % (37.0-80.0); Red Cell Distribution Width 15.3 % (11.8-14.3); White Blood Cell 6.7 10^3/uL (4.4-10.8)
[2022-06-11 11:37] LABS: Albumin 3.6 g/dL (3.4-5.0); Potassium 4.8 mmol/L (3.5-5.1)
[2022-06-11 11:40] LABS: BUN/Creatinine Ratio 33.7; Bilirubin, Total 0.5 mg/dL (0.2-1.0); Total Protein 7.1 g/dL (6.4-8.2)
[2022-06-11] MEDS ORDERED: ONDANSETRON HCL 4 MG/2 ML VIAL IV PRN (13:30)
[2022-06-11] MEDS ORDERED: cefTRIAXone 1GM/50ML D5W 50 ML IV ONE ×2 (13:30→14:20)
[2022-06-11] MEDS ORDERED: PANTOPRAZOLE 40 MG/10 ML VIAL INJ IV ONE (13:30)
[2022-06-11] MEDS ORDERED: ACETAMINOPHEN 325 MG TAB PO PRN (13:30)
[2022-06-11] MEDS ORDERED: DEXTROSE (50%) 50ML SYRG IV PRN (14:00)
[2022-06-11 14:18] LABS: Cholesterol 109 mg/dL (< 200); HDL Cholesterol 60 mg/dL (40-59); LDL Cholesterol 49 mg/dL (< 100); Triglycerides 96 mg/dL (< 150)
[2022-06-11] MEDS: InsuLIN REG 1unit/0.01ml Soln (100units/ml) SC SCH ×2 (17:00→22:00)
[2022-06-11] MEDS: ACCU-CHEK COMFORT CURVE STRIP VI SCH ×2 (17:17→22:12)
[2022-06-11 22:00] VITALS: BP 141/46
[2022-06-11 22:58] VITALS: BP 141/50
[2022-06-11] MEDS ORDERED: ESCI-34 PO (23:15)
[2022-06-11] MEDS ORDERED: MEMA1CAP2 (23:15)
[2022-06-11] MEDS ORDERED: VORT1TAB3 PO (23:15)
[2022-06-11] MEDS ORDERED: DONE1TAB88 PO (23:15)
[2022-06-11] MEDS ORDERED: METF-372 PO (23:15)
[2022-06-11] MEDS ORDERED: ROPI0.254 PO (23:15)
[2022-06-12 05:00] VITALS: BP 130/53
[2022-06-12] MEDS: ACCU-CHEK COMFORT CURVE STRIP VI SCH ×4 (06:15→21:32)
[2022-06-12] MEDS: InsuLIN REG 1unit/0.01ml Soln (100units/ml) SC SCH ×4 (06:15→21:33)
[2022-06-12 08:55] VITALS: BP 130/50
[2022-06-12] MEDS: ENOXAPARIN SOD 40 MG/0.4 ML SYRINGE SC SCH (09:28)
[2022-06-12] MEDS: cefTRIAXone 1GM/50ML D5W 50 ML IV SCH (09:28)
[2022-06-12] MEDS ORDERED: PANTOPRAZOLE 40 MG/10 ML VIAL INJ IV SCH (10:00)
[2022-06-12 13:35] VITALS: BP 103/43
[2022-06-12 17:12] VITALS: BP 126/48
[2022-06-12 22:00] VITALS: BP 107/39
[2022-06-12] MEDS ORDERED: LORazepam 2MG/ML-1ML VIAL IV PRN (22:30)
[2022-06-13 05:00] VITALS: BP 125/46
[2022-06-13] MEDS: InsuLIN REG 1unit/0.01ml Soln (100units/ml) SC SCH ×4 (06:43→21:35)
[2022-06-13] MEDS: ACCU-CHEK COMFORT CURVE STRIP VI SCH ×4 (06:43→21:32)
[2022-06-13] MEDS: cefTRIAXone 1GM/50ML D5W 50 ML IV SCH (08:52)
[2022-06-13] MEDS: ENOXAPARIN SOD 40 MG/0.4 ML SYRINGE SC SCH (09:11)
[2022-06-13 09:28] VITALS: BP 126/49
[2022-06-13 13:00] VITALS: BP 119/45
[2022-06-13 17:32] VITALS: BP 121/46
[2022-06-13] MEDS: DONEPEZIL HYDROCHLORIDE 5 MG TAB PO SCH (21:39)
[2022-06-13 21:48] VITALS: BP 123/45
[2022-06-14] MEDS: ACCU-CHEK COMFORT CURVE STRIP VI SCH ×4 (05:35→22:36)
[2022-06-14] MEDS: InsuLIN REG 1unit/0.01ml Soln (100units/ml) SC SCH ×4 (05:39→22:00)
[2022-06-14 05:45] VITALS: BP 130/47
[2022-06-14 08:00] VITALS: BP 152/70
[2022-06-14] MEDS: cefTRIAXone 1GM/50ML D5W 50 ML IV SCH (09:17)
[2022-06-14] MEDS: ENOXAPARIN SOD 40 MG/0.4 ML SYRINGE SC SCH (09:17)
[2022-06-14] MEDS: SODIUM CHLORIDE 0.9% 1,000 ML IV SCH ×2 (11:15→21:15)
[2022-06-14 12:00] VITALS: BP 120/74
[2022-06-14 16:00] VITALS: BP 103/59
[2022-06-14 22:00] VITALS: BP 91/32
[2022-06-14] MEDS: DONEPEZIL HYDROCHLORIDE 5 MG TAB PO SCH (22:35)
[2022-06-15 05:00] VITALS: BP 149/68
[2022-06-15] MEDS: ACCU-CHEK COMFORT CURVE STRIP VI SCH (06:33)
[2022-06-15] MEDS: InsuLIN REG 1unit/0.01ml Soln (100units/ml) SC SCH (06:33)
[2022-06-15 08:00] VITALS: BP 124/65
[2022-06-15] MEDS: ENOXAPARIN SOD 40 MG/0.4 ML SYRINGE SC SCH (09:26)
[2022-06-15] MEDS: cefTRIAXone 1GM/50ML D5W 50 ML IV SCH (09:27)
[2022-06-15] MEDS ORDERED: LEVO500T31 PO (10:23)
[2022-06-15] MEDS ORDERED: DONE10TA5 PO (10:23)
[2022-06-15 12:00] VITALS: BP 143/65
[2022-06-15 12:22] VITALS: BP 124/65
== END 2022-06-15 14:08 | disposition home or self-care (01) | DRG 720 ==
LOC: ER 09:09 → OVERFLOW 13:28 → EAST 21:00
PROVIDERS: ADMIT Nurse Practitioner Family; ATTEND Family Medicine
DX: A41.9 Sepsis, unspecified organism (principal); G93.41 Metabolic encephalopathy; J18.9 Pneumonia, unspecified organism; F03.B3 Unspecified dementia, moderate, with mood disturbance; G45.9 Transient cerebral ischemic attack, unspecified; D64.9 Anemia, unspecified; E11.65 Type 2 diabetes mellitus with hyperglycemia; I10 Essential (primary) hypertension; E78.00 Pure hypercholesterolemia, unspecified; R39.81 Functional urinary incontinence; Z20.822 Contact with and (suspected) exposure to COVID-19; J32.4 Chronic pansinusitis; N39.0 Urinary tract infection, site not specified; R15.9 Full incontinence of feces; I25.10 Atherosclerotic heart disease of native coronary artery without angina pectoris; Z95.5 Presence of coronary angioplasty implant and graft; F17.200 Nicotine dependence, unspecified, uncomplicated; Z79.82 Long term (current) use of aspirin; Z79.899 Other long term (current) drug therapy; Z83.3 Family history of diabetes mellitus; Z90.710 Acquired absence of both cervix and uterus; Z90.49 Acquired absence of other specified parts of digestive tract
CPT/HCPCS: 36415; 70450; 70551; 71045; 80053; 80061; 81001; 82962; 83036; 83540; 83550; 84443; 84484; 85025; 87040; 87086; 87426; 93005; 96365; 96375; 97110; 97116; 97163; 97530; C9113; G0378; J0696; J1815

== ENCOUNTER → 2022-08-02 | Outpatient (CLI) | payer MEDICARE, OTHER ==
[~2022-08-02] MED LIST changes: +DONE10TA5 PO; +DONE1TAB88 PO; +ESCI-34 PO; +LEVO500T31 PO; +MEMA1CAP2; +METF-372 PO; +ROPI0.254 PO; +VORT1TAB3 PO
[2022-08-02 16:25] LABS: Urine Blood Negative /uL (Negative); Urine Specific Gravity 1.022 (1.001-1.035)
== END | disposition home or self-care (01) ==
LOC: LAB 11:33
PROVIDERS: ATTEND Internal Medicine
DX: N39.0 Urinary tract infection, site not specified (principal)
CPT/HCPCS: 81003

== ENCOUNTER 2022-08-27 11:03 | Inpatient (IN) | payer MEDICARE, OTHER ==
[~2022-08-27] VITALS: Ht 162.6 cm; Wt 63.5 kg
[2022-08-27 12:18] LABS: Basophils # (auto) 0 10 ^3/uL (0-0.2); Basophils % (auto) 0.8 % (0.0-2.0); Eosinophils # (auto) 0.2 10 ^3/uL (0-0.8); Eosinophils % (auto) 3.4 % (0.0-7.0); Hematocrit 34.7 % (36.0-46.0); Hemoglobin 11.4 g/dL (12.2-16.2); Lymphocytes # (auto) 1.2 10 ^3/uL (0.4-5.4); Lymphocytes % (auto) 22.2 % (10.0-50.0); Mean Corpuscular Hemoglobin 27.8 pg (28.0-32.0); Mean Corpuscular Hgb Conc. 32.9 g/dL (32.0-36.0); Mean Corpuscular Volume 84.6 fL (80.0-100.0); Monocytes # (auto) 0.5 10 ^3/uL (0-1.3); Monocytes % (auto) 8.5 % (0.0-12.0); Neutrophils # (auto) 3.5 10 ^3/uL (1.6-8.6); Neutrophils % (auto) 65.1 % (37.0-80.0); Nucleated Red Blood Cells % 0.1 %; Red Blood Cells 4.11 10^6/uL (4.0-5.20); White Blood Cell 5.4 10^3/uL (4.4-10.8)
[2022-08-27 12:31] LABS: Calcium 9.2 mg/dL (8.5-10.1); Potassium 4.5 mmol/L (3.5-5.1)
[2022-08-27 12:35] LABS: BUN/Creatinine Ratio 30.1; Bilirubin, Total 0.5 mg/dL (0.2-1.0); Total Protein 7.6 g/dL (6.4-8.2)
[2022-08-27] MEDS ORDERED: cefTRIAXone 1GM/50ML D5W 50 ML IV ONE (13:15)
[2022-08-27 14:34] LABS: Urine Bacteria MOD /hpf (None Seen); Urine Blood Negative /uL (Negative); Urine Mucus FEW (None Seen); Urine Specific Gravity 1.023 (1.001-1.035); Urine WBC 5 /hpf (0 - 5)
[2022-08-27] MEDS ORDERED: DEXTROSE (50%) 50ML SYRG IV PRN ×2 (15:00→19:45)
[2022-08-27] MEDS ORDERED: ACETAMINOPHEN 325 MG TAB PO PRN (19:45)
[2022-08-27] MEDS ORDERED: HYDROcodone-ACET 5/325MG TAB PO PRN (19:45)
[2022-08-27] MEDS ORDERED: DOCUSATE SOD 100 MG CAP PO PRN (19:45)
[2022-08-27] MEDS ORDERED: ONDANSETRON HCL 4 MG/2 ML VIAL IV PRN (19:45)
[2022-08-27] MEDS: ACCU-CHEK COMFORT CURVE STRIP VI SCH ×2 (20:41→21:30)
[2022-08-27 20:44] LABS: Lactic Acid w/Reflex 4.2 mmol/L (0.4-2.0)
[2022-08-27] MEDS: InsuLIN REG 1unit/0.01ml Soln (100units/ml) SC SCH ×2 (20:48→21:30)
[2022-08-27] MEDS: ROPINIROLE HYDROCHLORIDE PO SCH (22:00)
[2022-08-27] MEDS ORDERED: InsuLIN REG 1unit/0.01ml Soln (100units/ml) SC SCH (22:00)
[2022-08-27] MEDS ORDERED: ACCU-CHEK COMFORT CURVE STRIP VI SCH (22:00)
[2022-08-27] MEDS: SODIUM CHLOR 0.9% PF (SALINE LOCK) 10ML VIAL/SYR IV SCH (22:01)
[2022-08-27] MEDS: ATORVASTATIN 20 MG TAB PO SCH (22:02)
[2022-08-27] MEDS: ENALAPRIL MALEATE 2.5 MG TAB PO SCH (22:04)
[2022-08-27] MEDS: CARVEDILOL 3.125 MG TAB PO SCH (22:04)
[2022-08-28] MEDS: InsuLIN REG 1unit/0.01ml Soln (100units/ml) SC SCH ×4 (06:21→22:18)
[2022-08-28] MEDS: SODIUM CHLOR 0.9% PF (SALINE LOCK) 10ML VIAL/SYR IV SCH ×3 (06:21→22:16)
[2022-08-28] MEDS: ACCU-CHEK COMFORT CURVE STRIP VI SCH ×4 (06:22→22:16)
[2022-08-28] MEDS: ASPirin 81 mg TAB PO SCH (10:52)
[2022-08-28] MEDS: CITALOPRAM HYDROBR 20 MG TAB PO SCH (10:53)
[2022-08-28] MEDS: DONEPEZIL HYDROCHLORIDE 5 MG TAB PO SCH (10:53)
[2022-08-28] MEDS: cefTRIAXone 1GM/50ML D5W 50 ML IV SCH (10:53)
[2022-08-28] MEDS: ROPINIROLE HYDROCHLORIDE PO SCH ×2 (10:53→22:00)
[2022-08-28] MEDS: CLOPIDOGREL BISULFATE 75 MG TAB PO SCH (10:53)
[2022-08-28] MEDS: ENALAPRIL MALEATE 2.5 MG TAB PO SCH ×2 (10:58→22:00)
[2022-08-28] MEDS: CARVEDILOL 3.125 MG TAB PO SCH ×2 (10:58→22:15)
[2022-08-28 17:36] VITALS: BP 141/65
[2022-08-28 22:00] VITALS: BP 131/53
[2022-08-28] MEDS: ATORVASTATIN 20 MG TAB PO SCH (22:15)
[2022-08-29 05:00] VITALS: BP 134/41
[2022-08-29] MEDS: SODIUM CHLOR 0.9% PF (SALINE LOCK) 10ML VIAL/SYR IV SCH ×3 (05:45→21:59)
[2022-08-29] MEDS: InsuLIN REG 1unit/0.01ml Soln (100units/ml) SC SCH ×4 (06:07→21:58)
[2022-08-29] MEDS: ACCU-CHEK COMFORT CURVE STRIP VI SCH ×4 (06:07→21:59)
[2022-08-29 07:29] LABS: Calcium 8.6 mg/dL (8.5-10.1)
[2022-08-29 07:39] LABS: Basophils # (auto) 0 10 ^3/uL (0-0.2); Basophils % (auto) 0.7 % (0.0-2.0); Eosinophils # (auto) 0.3 10 ^3/uL (0-0.8); Eosinophils % (auto) 4.1 % (0.0-7.0); Hematocrit 31.2 % (36.0-46.0); Hemoglobin 10.4 g/dL (12.2-16.2); Lymphocytes # (auto) 1.6 10 ^3/uL (0.4-5.4); Lymphocytes % (auto) 24.1 % (10.0-50.0); Mean Corpuscular Hemoglobin 27.9 pg (28.0-32.0); Mean Corpuscular Hgb Conc. 33.2 g/dL (32.0-36.0); Mean Corpuscular Volume 84.1 fL (80.0-100.0); Monocytes # (auto) 0.7 10 ^3/uL (0-1.3); Neutrophils # (auto) 4.1 10 ^3/uL (1.6-8.6); Neutrophils % (auto) 61.1 % (37.0-80.0); Red Blood Cells 3.71 10^6/uL (4.0-5.20); Red Cell Distribution Width 16.5 % (11.8-14.3); White Blood Cell 6.8 10^3/uL (4.4-10.8)
[2022-08-29 08:00] VITALS: BP 146/52
[2022-08-29 09:00] VITALS: BP 116/42
[2022-08-29] MEDS: ROPINIROLE HYDROCHLORIDE PO SCH ×2 (10:00→21:58)
[2022-08-29] MEDS: ASPirin 81 mg TAB PO SCH (10:24)
[2022-08-29] MEDS: CITALOPRAM HYDROBR 20 MG TAB PO SCH (10:24)
[2022-08-29] MEDS: cefTRIAXone 1GM/50ML D5W 50 ML IV SCH (10:24)
[2022-08-29] MEDS: ENALAPRIL MALEATE 2.5 MG TAB PO SCH ×2 (10:27→21:59)
[2022-08-29] MEDS: CARVEDILOL 3.125 MG TAB PO SCH ×2 (10:28→21:58)
[2022-08-29] MEDS: DONEPEZIL HYDROCHLORIDE 5 MG TAB PO SCH (10:29)
[2022-08-29] MEDS: CLOPIDOGREL BISULFATE 75 MG TAB PO SCH (10:29)
[2022-08-29 13:00] VITALS: BP 125/62
[2022-08-29 17:00] VITALS: BP 90/40
[2022-08-29 21:50] VITALS: BP 95/42
[2022-08-29] MEDS: ATORVASTATIN 20 MG TAB PO SCH (21:55)
[2022-08-30 05:00] VITALS: BP 125/43
[2022-08-30] MEDS: SODIUM CHLOR 0.9% PF (SALINE LOCK) 10ML VIAL/SYR IV SCH ×2 (05:44→14:00)
[2022-08-30] MEDS: ACCU-CHEK COMFORT CURVE STRIP VI SCH ×3 (06:06→16:28)
[2022-08-30] MEDS: InsuLIN REG 1unit/0.01ml Soln (100units/ml) SC SCH ×3 (06:06→16:28)
[2022-08-30 06:14] LABS: Basophils # (auto) 0.1 10 ^3/uL (0-0.2); Basophils % (auto) 0.9 % (0.0-2.0); Eosinophils # (auto) 0.3 10 ^3/uL (0-0.8); Eosinophils % (auto) 5.1 % (0.0-7.0); Hemoglobin 10.4 g/dL (12.2-16.2); Lymphocytes # (auto) 1.6 10 ^3/uL (0.4-5.4); Lymphocytes % (auto) 24.6 % (10.0-50.0); Mean Corpuscular Hemoglobin 27.8 pg (28.0-32.0); Mean Corpuscular Hgb Conc. 33.5 g/dL (32.0-36.0); Mean Corpuscular Volume 82.9 fL (80.0-100.0); Monocytes # (auto) 0.7 10 ^3/uL (0-1.3); Monocytes % (auto) 10.8 % (0.0-12.0); Neutrophils # (auto) 3.9 10 ^3/uL (1.6-8.6); Neutrophils % (auto) 58.6 % (37.0-80.0); Red Blood Cells 3.74 10^6/uL (4.0-5.20); Red Cell Distribution Width 17.1 % (11.8-14.3); White Blood Cell 6.7 10^3/uL (4.4-10.8)
[2022-08-30 06:26] LABS: BUN/Creatinine Ratio 40.3; Calcium 8.2 mg/dL (8.5-10.1); Potassium 4.5 mmol/L (3.5-5.1)
[2022-08-30 09:44] VITALS: BP 115/53
[2022-08-30] MEDS: ROPINIROLE HYDROCHLORIDE PO SCH (10:00)
[2022-08-30] MEDS: ASPirin 81 mg TAB PO SCH (10:29)
[2022-08-30] MEDS: cefTRIAXone 1GM/50ML D5W 50 ML IV SCH (10:29)
[2022-08-30] MEDS: CITALOPRAM HYDROBR 20 MG TAB PO SCH (10:29)
[2022-08-30] MEDS: ENALAPRIL MALEATE 2.5 MG TAB PO SCH (10:30)
[2022-08-30] MEDS: CARVEDILOL 3.125 MG TAB PO SCH (10:30)
[2022-08-30] MEDS: CLOPIDOGREL BISULFATE 75 MG TAB PO SCH (10:30)
[2022-08-30] MEDS: DONEPEZIL HYDROCHLORIDE 5 MG TAB PO SCH (10:31)
[2022-08-30] MEDS ORDERED: NITR-52 PO (14:11)
[2022-08-30 15:04] VITALS: BP 127/47
== END 2022-08-30 18:00 | disposition home or self-care (01) | DRG 52 ==
LOC: ER 11:03 → OVERFLOW 19:47 → EAST 08-28 17:25
PROVIDERS: ADMIT Internal Medicine; ATTEND Internal Medicine Pulmonary Disease
DX: G93.41 Metabolic encephalopathy (principal); F03.90 Unspecified dementia, unspecified severity, without behavioral disturbance, psychotic disturbance, mood disturbance, and anxiety; E11.9 Type 2 diabetes mellitus without complications; I10 Essential (primary) hypertension; B96.1 Klebsiella pneumoniae [K. pneumoniae] as the cause of diseases classified elsewhere; N39.0 Urinary tract infection, site not specified; I25.10 Atherosclerotic heart disease of native coronary artery without angina pectoris; R79.89 Other specified abnormal findings of blood chemistry; Z20.822 Contact with and (suspected) exposure to COVID-19; Z90.710 Acquired absence of both cervix and uterus; Z87.891 Personal history of nicotine dependence; Z83.3 Family history of diabetes mellitus; Z90.49 Acquired absence of other specified parts of digestive tract
CPT/HCPCS: 36415; 70450; 70551; 71045; 80048; 80053; 81001; 82962; 83605; 83880; 84484; 85025; 85652; 86141; 87040; 87086; 87088; 87186; 87426; 96365; 96366; G0378; J0696; J1815

== ENCOUNTER → 2023-01-10 | Outpatient (CLI) | payer MEDICARE, OTHER ==
[~2023-01-10] MED LIST changes: +NITR-52 PO
[2023-01-10 11:05] LABS: Basophils # (auto) 0 10 ^3/uL (0-0.2); Eosinophils # (auto) 0.2 10 ^3/uL (0-0.8); Eosinophils % (auto) 3.8 % (0.0-7.0); Lymphocytes # (auto) 1.3 10 ^3/uL (0.4-5.4); Mean Corpuscular Hemoglobin 26.7 pg (28.0-32.0); Monocytes # (auto) 0.6 10 ^3/uL (0-1.3)
[2023-01-10 11:06] LABS: Basophils % (auto) 0.7 % (0.0-2.0); Hematocrit 31.1 % (36.0-46.0); Hemoglobin 10.1 g/dL (12.2-16.2); Lymphocytes % (auto) 21.1 % (10.0-50.0); Mean Corpuscular Hgb Conc. 32.5 g/dL (32.0-36.0); Mean Corpuscular Volume 82.3 fL (80.0-100.0); Monocytes % (auto) 9.5 % (0.0-12.0); Neutrophils # (auto) 3.9 10 ^3/uL (1.6-8.6); Neutrophils % (auto) 64.9 % (37.0-80.0); Nucleated Red Blood Cells % 0.1 %; Red Blood Cells 3.78 10^6/uL (4.0-5.20); Red Cell Distribution Width 16.9 % (11.8-14.3)
[2023-01-10 11:18] LABS: Urine Bacteria MANY /hpf (None Seen); Urine Blood Negative /uL (Negative); Urine Hyaline Cast FEW /lpf (0 - 2); Urine Mucus FEW (None Seen); Urine WBC 262 /hpf (0 - 5); Urine WBC Clumps PRESENT /hpf (None Seen)
[2023-01-10 12:46] LABS: Albumin 3.4 g/dL (3.4-5.0); Potassium 4.6 mmol/L (3.5-5.1)
[2023-01-10 12:54] LABS: BUN/Creatinine Ratio 27.7 (10.0-20.0); Bilirubin, Total 0.3 mg/dL (0.2-1.0); Calcium 8.7 mg/dL (8.5-10.1); Total Protein 6.9 g/dL (6.4-8.2)
== END | disposition home or self-care (01) ==
LOC: LAB 10:29
PROVIDERS: ATTEND Internal Medicine Cardiovascular Disease
DX: D51.3 Other dietary vitamin B12 deficiency anemia (principal); I10 Essential (primary) hypertension; E11.9 Type 2 diabetes mellitus without complications; R00.2 Palpitations; R53.1 Weakness; R30.0 Dysuria; E55.9 Vitamin D deficiency, unspecified; D64.9 Anemia, unspecified
CPT/HCPCS: 36415; 80053; 80061; 81001; 82306; 82607; 83036; 84436; 84443; 85025

== ENCOUNTER → 2023-02-12 | Outpatient (CLI) | payer MEDICARE, OTHER ==
[~2023-02-12] VITALS: Ht 162.6 cm; Wt 65.8 kg
[~2023-02-12] MED LIST changes: +ADENOSINE 55 MG in GIVE UN-DILUTED 0 ML IV ONE; +ADENOSINE 90 MG/30 ML INJ IV ONE; -DONE10TA5 PO; +DONE10TA9 PO; -ESCI-34 PO; +ESCI1TAB37 PO
== END | disposition home or self-care (01) ==
LOC: Rad HDHVI 12:56
PROVIDERS: ATTEND Internal Medicine Cardiovascular Disease
DX: I25.10 Atherosclerotic heart disease of native coronary artery without angina pectoris (principal); I10 Essential (primary) hypertension; E78.00 Pure hypercholesterolemia, unspecified; R42 Dizziness and giddiness; R55 Syncope and collapse; E11.21 Type 2 diabetes mellitus with diabetic nephropathy; E11.40 Type 2 diabetes mellitus with diabetic neuropathy, unspecified; E11.65 Type 2 diabetes mellitus with hyperglycemia; Z82.49 Family history of ischemic heart disease and other diseases of the circulatory system
CPT/HCPCS: 78452; 93005; 96374; 96375; A9500; J0153

== ENCOUNTER → 2023-02-18 | Outpatient (CLI) | payer MEDICARE, OTHER ==
[~2023-02-18] MED LIST changes: -ADENOSINE 55 MG in GIVE UN-DILUTED 0 ML IV ONE; -ADENOSINE 90 MG/30 ML INJ IV ONE
== END | disposition home or self-care (01) ==
LOC: Rad HDHVI 12:48
PROVIDERS: ATTEND Internal Medicine Cardiovascular Disease
DX: I08.3 Combined rheumatic disorders of mitral, aortic and tricuspid valves (principal); R55 Syncope and collapse; E78.5 Hyperlipidemia, unspecified
CPT/HCPCS: 93306

== ENCOUNTER 2024-03-27 08:13 | Inpatient (IN) | payer MEDICARE, OTHER ==
[~2024-03-27] VITALS: Ht 152.4 cm; Wt 59.2 kg
[~2024-03-27 08:13] MED LIST changes: -CAR3125T PO; +CARV-214 PO; +ENAL1TAB43 PO; -ENAL2.5T11 PO; -ROPI0.254 PO; +ROPI5TAB20 PO
[2024-03-27 09:27] LABS: Urine Bacteria FEW /hpf (None Seen); Urine Blood Negative /uL (Negative); Urine Clarity Clear (Clear); Urine Color Light-Yellow (Yellow); Urine Mucus FEW (None Seen); Urine Protein, UAD TRACE (Negative); Urine Specific Gravity 1.014 (1.001-1.035); Urine Urobilinogen Normal (Negative); Urine WBC 19 /hpf (0 - 5); Urine pH 5.5 (5.0-9.0)
[2024-03-27] MEDS: SODIUM CHLORIDE 0.9% 1,000 ML IV ONE ×2 (09:53→10:53)
[2024-03-27 10:01] LABS: Basophils # (auto) 0 10 ^3/uL (0-0.2); Basophils % (auto) 0.2 % (0.0-2.0); Eosinophils # (auto) 0.2 10 ^3/uL (0-0.8); Lymphocytes % (auto) 12.6 % (10.0-50.0); Neutrophils # (auto) 5.8 10 ^3/uL (1.6-8.6); White Blood Cell 7.8 10^3/uL (4.4-10.8)
[2024-03-27 10:04] LABS: Eosinophils % (auto) 2.1 % (0.0-7.0); Hematocrit 22.2 % (36.0-46.0); Hemoglobin 7.1 g/dL (12.2-16.2); Mean Corpuscular Volume 68.9 fL (80.0-100.0); Monocytes # (auto) 0.9 10 ^3/uL (0-1.3); Neutrophils % (auto) 74.1 % (37.0-80.0); Red Blood Cells 3.23 10^6/uL (4.0-5.20)
[2024-03-27 10:06] LABS: Red Cell Distribution Width 20.7 % (11.8-14.3)
[2024-03-27 10:19] LABS: Chloride 111 mmol/L (98-107); Potassium 4.3 mmol/L (3.5-5.1); Sodium 140 mmol/L (136-145)
[2024-03-27 10:20] LABS: Anion Gap 6 (5-15); Calcium 9.2 mg/dL (8.7-10.4); Carbon Dioxide 23 mmol/L (20-30)
[2024-03-27 10:25] LABS: BUN/Creatinine Ratio 32.5 (10.0-20.0); Blood Urea Nitrogen 26 mg/dL (9-23); Glucose 111 mg/dL (74-106)
[2024-03-27 11:24] LABS: Ovalocytes FEW; Platelet Estimate Decreased
[2024-03-27] MEDS ORDERED: DOCUSATE SOD 100 MG CAP PO PRN (15:00)
[2024-03-27] MEDS ORDERED: MORPHINE SULFATE INJ 2 MG/ml SYRG IV PRN (15:00)
[2024-03-27] MEDS ORDERED: ONDANSETRON HCL 4 MG/2 ML VIAL IV PRN (15:00)
[2024-03-27] MEDS ORDERED: NITROGLYCERIN 0.4 MG SL TAB SL PRN (15:00)
[2024-03-27 15:32] LABS: % Iron Saturation 6.7 % (15-50)
[2024-03-27] MEDS: SODIUM CHLORIDE 0.9% 1,000 ML IV SCH (15:54)
[2024-03-27 15:59] LABS: Ferritin 3.1 ng/mL (10-291)
[2024-03-27 16:15] LABS: Folate (Folic Acid) 29.51 ng/mL (>5.38)
[2024-03-27 16:20] LABS: Hematocrit 22.1 % (36.0-46.0)
[2024-03-27 16:26] LABS: Hemoglobin 6.8 g/dL (12.2-16.2)
[2024-03-27 17:30] VITALS: BP 126/47; PULSE 72; RESP 18; TEMP 98
[2024-03-27 17:35] VITALS: BP 141/48; PULSE 73; RESP 12; TEMP 97.5
[2024-03-27 17:50] VITALS: BP 143/47; PULSE 74; RESP 10; TEMP 97.8
[2024-03-27] MEDS: FUROSEMIDE 20 MG/2 ML VIAL IV ONE (18:00)
[2024-03-27 20:52] VITALS: BP 143/52; PULSE 70; RESP 18; TEMP 98.4; O2SAT 98
[2024-03-27 20:54] VITALS: BP 138/51; PULSE 72; RESP 18; TEMP 98
[2024-03-27 21:00] VITALS: BP 136/56; PULSE 72; RESP 18; TEMP 98.1; O2SAT 94
[2024-03-27] MEDS: levoFLOXacin 500MG 100 ML IV ONE (21:15)
[2024-03-27] MEDS: PANTOPRAZOLE 40 MG/10 ML VIAL INJ IV ONE (21:15)
[2024-03-27] MEDS ORDERED: SODIUM CHLORIDE 0.9% 1,000 ML IV SCH (21:15)
[2024-03-27] MEDS: PANTOPRAZOLE 40 MG/10 ML VIAL INJ IV SCH (22:00)
[2024-03-28] VITALS (8 sets, daily range): BP systolic 123–140; BP diastolic 41–86; PULSE 73–85; RESP 15–18; TEMP 97.8–98.5; O2SAT 93–98
[2024-03-28 00:48] LABS: Hematocrit 25.7 % (36.0-46.0); Hemoglobin 8.2 g/dL (12.2-16.2)
[2024-03-28] MEDS: FUROSEMIDE 20 MG/2 ML VIAL IV ONE (01:36)
[2024-03-28] MEDS: levoFLOXacin 500MG 100 ML IV ONE (01:36)
[2024-03-28] MEDS: PANTOPRAZOLE 40 MG/10 ML VIAL INJ IV ONE (01:37)
[2024-03-28] MEDS ORDERED: FUROSEMIDE 20 MG/2 ML VIAL IV SCH (06:00)
[2024-03-28 06:36] LABS: Basophils # (auto) 0 10 ^3/uL (0-0.2); Basophils % (auto) 0.4 % (0.0-2.0); Eosinophils # (auto) 0.3 10 ^3/uL (0-0.8); Lymphocytes # (auto) 1.2 10 ^3/uL (0.4-5.4); Mean Corpuscular Volume 69.2 fL (80.0-100.0); Monocytes # (auto) 0.8 10 ^3/uL (0-1.3); Neutrophils # (auto) 5.3 10 ^3/uL (1.6-8.6); Nucleated Red Blood Cells % 0.1 %
[2024-03-28 06:37] LABS: Alanine Aminotransferase 14 U/L (7-40); Alkaline Phosphatase 62 U/L (46-116); Anion Gap 10 (5-15); BUN/Creatinine Ratio 26.1 (10.0-20.0); Blood Urea Nitrogen 18 mg/dL (9-23); Calcium 8.6 mg/dL (8.7-10.4); Carbon Dioxide 20 mmol/L (20-30); Chloride 110 mmol/L (98-107); Glucose 76 mg/dL (74-106); Potassium 3.6 mmol/L (3.5-5.1); Sodium 140 mmol/L (136-145)
[2024-03-28 06:38] LABS: Albumin 3.6 g/dL (3.2-4.8); Aspartate Aminotransferase 19 U/L (13-40); Bilirubin, Total 0.6 mg/dL (0.2-1.0); Eosinophils % (auto) 3.7 % (0.0-7.0); Hematocrit 27.6 % (36.0-46.0); Lymphocytes % (auto) 15.8 % (10.0-50.0); Mean Corpuscular Hemoglobin 22.7 pg (28.0-32.0); Mean Corpuscular Hgb Conc. 32.8 g/dL (32.0-36.0); Monocytes % (auto) 10.6 % (0.0-12.0); Neutrophils % (auto) 69.5 % (37.0-80.0); Red Blood Cells 3.98 10^6/uL (4.0-5.20); Red Cell Distribution Width 20.1 % (11.8-14.3); Total Protein 6.4 g/dL (5.7-8.2); White Blood Cell 7.7 10^3/uL (4.4-10.8)
[2024-03-28] MEDS ORDERED: levoFLOXacin 500MG 100 ML IV SCH (10:00)
[2024-03-28 11:25] LABS: Hematocrit 29.6 % (36.0-46.0); Hemoglobin 9.4 g/dL (12.2-16.2)
[2024-03-28] MEDS: FUROSEMIDE 20 MG/2 ML VIAL IV SCH (18:20)
[2024-03-28 18:34] LABS: Hemoglobin 9.2 g/dL (12.2-16.2)
[2024-03-28 18:36] LABS: Hematocrit 28.8 % (36.0-46.0)
[2024-03-28] MEDS: levoFLOXacin 500MG 100 ML IV SCH (20:35)
[2024-03-28] MEDS ORDERED: METH-1286 PO (21:07)
[2024-03-28] MEDS ORDERED: VORT1TAB3 PO (21:15)
[2024-03-28] MEDS ORDERED: RIVA1DIS TD (21:15)
[2024-03-28] MEDS ORDERED: SITA50TA PO (21:15)
[2024-03-28] MEDS: PANTOPRAZOLE 40 MG/10 ML VIAL INJ IV SCH (21:38)
[2024-03-28] MEDS: ENALAPRIL MALEATE 2.5 MG TAB PO SCH (21:40)
[2024-03-28] MEDS: ATORVASTATIN 20 MG TAB PO SCH (21:41)
[2024-03-28] MEDS: CARVEDILOL 3.125 MG TAB PO SCH (21:41)
[2024-03-29] VITALS (8 sets, daily range): BP systolic 96–122; BP diastolic 38–58; PULSE 75–87; RESP 16–20; TEMP 97.9–98.6; O2SAT 94–100
[2024-03-29 00:21] LABS: Hematocrit 29.9 % (36.0-46.0); Hemoglobin 9.6 g/dL (12.2-16.2)
[2024-03-29 06:53] LABS: Hemoglobin 9.5 g/dL (12.2-16.2)
[2024-03-29 06:56] LABS: Hematocrit 29.3 % (36.0-46.0)
[2024-03-29 08:27] LABS: Basophils # (auto) 0 10 ^3/uL (0-0.2); Basophils % (auto) 0.7 % (0.0-2.0); Eosinophils # (auto) 0.3 10 ^3/uL (0-0.8); Hematocrit 30.1 % (36.0-46.0); Hemoglobin 9.5 g/dL (12.2-16.2); Red Blood Cells 4.31 10^6/uL (4.0-5.20)
[2024-03-29 08:29] LABS: Eosinophils % (auto) 4.5 % (0.0-7.0); Lymphocytes # (auto) 1.4 10 ^3/uL (0.4-5.4); Lymphocytes % (auto) 21.2 % (10.0-50.0); Mean Corpuscular Hgb Conc. 31.4 g/dL (32.0-36.0); Mean Corpuscular Volume 69.9 fL (80.0-100.0); Monocytes % (auto) 15.2 % (0.0-12.0); Neutrophils # (auto) 3.8 10 ^3/uL (1.6-8.6); Neutrophils % (auto) 58.4 % (37.0-80.0); White Blood Cell 6.6 10^3/uL (4.4-10.8)
[2024-03-29 08:32] LABS: Red Cell Distribution Width 20.4 % (11.8-14.3)
[2024-03-29] MEDS: CLOPIDOGREL BISULFATE 75 MG TAB PO SCH (08:33)
[2024-03-29] MEDS: metFORMIN HYDROCHLORIDE 500 MG TAB PO SCH (08:33)
[2024-03-29] MEDS: ASPirin 81 mg TAB PO SCH (08:33)
[2024-03-29] MEDS: CITALOPRAM HYDROBR 20 MG TAB PO SCH (08:33)
[2024-03-29] MEDS: ROPINIROLE HYDROCHLORIDE PO SCH (08:41)
[2024-03-29 08:46] LABS: Alanine Aminotransferase 16 U/L (7-40); Albumin 3.8 g/dL (3.2-4.8); Alkaline Phosphatase 65 U/L (46-116); Anion Gap 8 (5-15); Aspartate Aminotransferase 24 U/L (13-40); BUN/Creatinine Ratio 19.1 (10.0-20.0); Bilirubin, Total 0.5 mg/dL (0.2-1.0); Blood Urea Nitrogen 17 mg/dL (9-23); Calcium 8.5 mg/dL (8.7-10.4); Carbon Dioxide 24 mmol/L (20-30); Chloride 108 mmol/L (98-107); Glucose 92 mg/dL (74-106); Potassium 3.6 mmol/L (3.5-5.1); Sodium 140 mmol/L (136-145); Total Protein 6.3 g/dL (5.7-8.2)
[2024-03-29] MEDS: IOHEXOL 300 MG/ML 100ML BOTTLE IJ ONE (09:49)
[2024-03-29] MEDS ORDERED: PANTOPRAZOLE 40 MG/10 ML VIAL INJ IV SCH (10:00)
[2024-03-29 12:31] LABS: Hemoglobin 9.9 g/dL (12.2-16.2)
[2024-03-29 19:05] LABS: Hematocrit 31.5 % (36.0-46.0)
[2024-03-29] MEDS: ROPINIROLE HYDROCHLORIDE 0.25 MG PO SCH (22:00)
[2024-03-30] VITALS (8 sets, daily range): BP systolic 96–129; BP diastolic 50–60; PULSE 53–95; RESP 14–16; TEMP 98–98.2; O2SAT 93–98
[2024-03-30 07:38] LABS: Alanine Aminotransferase 20 U/L (7-40); Alkaline Phosphatase 69 U/L (46-116); Anion Gap 9 (5-15); Calcium 8.6 mg/dL (8.7-10.4); Carbon Dioxide 23 mmol/L (20-30); Chloride 107 mmol/L (98-107); Potassium 3.6 mmol/L (3.5-5.1); Sodium 139 mmol/L (136-145)
[2024-03-30 07:39] LABS: Albumin 3.8 g/dL (3.2-4.8); Aspartate Aminotransferase 27 U/L (13-40); BUN/Creatinine Ratio 19.9 (10.0-20.0); Glucose 154 mg/dL (74-106)
[2024-03-30 07:42] LABS: Bilirubin, Total 0.4 mg/dL (0.2-1.0); Blood Urea Nitrogen 27 mg/dL (9-23); Total Protein 6.3 g/dL (5.7-8.2)
[2024-03-30 07:56] LABS: Basophils # (auto) 0 10 ^3/uL (0-0.2); Basophils % (auto) 0.6 % (0.0-2.0); Eosinophils # (auto) 0.3 10 ^3/uL (0-0.8); Hemoglobin 9.6 g/dL (12.2-16.2); White Blood Cell 6.9 10^3/uL (4.4-10.8)
[2024-03-30 08:04] LABS: Eosinophils % (auto) 3.9 % (0.0-7.0); Hematocrit 29.7 % (36.0-46.0); Lymphocytes # (auto) 1.5 10 ^3/uL (0.4-5.4); Lymphocytes % (auto) 21.7 % (10.0-50.0); Mean Corpuscular Hemoglobin 22.6 pg (28.0-32.0); Mean Corpuscular Hgb Conc. 32.4 g/dL (32.0-36.0); Mean Corpuscular Volume 69.8 fL (80.0-100.0); Neutrophils % (auto) 58.8 % (37.0-80.0); Red Blood Cells 4.25 10^6/uL (4.0-5.20); Red Cell Distribution Width 20.3 % (11.8-14.3)
[2024-03-30] MEDS: PANTOPRAZOLE 40 MG/10 ML VIAL INJ IV SCH (10:08)
[2024-03-30] MEDS: levoFLOXacin 250MG 50 ML IV SCH (21:48)
[2024-03-31] VITALS (9 sets, daily range): BP systolic 118–132; BP diastolic 56–66; PULSE 58–91; RESP 16–18; TEMP 97.7–99; O2SAT 94–100
[2024-03-31 05:49] LABS: Basophils # (auto) 0.1 10 ^3/uL (0-0.2); Basophils % (auto) 0.8 % (0.0-2.0); Eosinophils # (auto) 0.2 10 ^3/uL (0-0.8)
[2024-03-31 05:52] LABS: Hematocrit 31.3 % (36.0-46.0); Hemoglobin 10.2 g/dL (12.2-16.2); Lymphocytes % (auto) 28.5 % (10.0-50.0); Mean Corpuscular Hemoglobin 22.3 pg (28.0-32.0); Mean Corpuscular Hgb Conc. 32.7 g/dL (32.0-36.0); Mean Corpuscular Volume 68.3 fL (80.0-100.0); Monocytes # (auto) 1.2 10 ^3/uL (0-1.3); Monocytes % (auto) 16.5 % (0.0-12.0); Neutrophils # (auto) 3.7 10 ^3/uL (1.6-8.6); Neutrophils % (auto) 51.2 % (37.0-80.0); Nucleated Red Blood Cells % 0.1 %; Red Blood Cells 4.59 10^6/uL (4.0-5.20); Red Cell Distribution Width 20.4 % (11.8-14.3); White Blood Cell 7.2 10^3/uL (4.4-10.8)
[2024-03-31 06:09] LABS: Alanine Aminotransferase 26 U/L (7-40); Albumin 3.9 g/dL (3.2-4.8); Alkaline Phosphatase 68 U/L (46-116); Anion Gap 10 (5-15); Aspartate Aminotransferase 37 U/L (13-40); BUN/Creatinine Ratio 18.1 (10.0-20.0); Blood Urea Nitrogen 19 mg/dL (9-23); Carbon Dioxide 25 mmol/L (20-30); Chloride 108 mmol/L (98-107); Glucose 159 mg/dL (74-106); Potassium 3.4 mmol/L (3.5-5.1); Sodium 143 mmol/L (136-145)
[2024-03-31 06:10] LABS: Bilirubin, Total 0.5 mg/dL (0.2-1.0); Total Protein 6.7 g/dL (5.7-8.2)
[2024-03-31] MEDS: POTASSIUM EFFERVESENT TAB 25 MEQ PO ONE (11:26)
[2024-03-31 14:18] LABS: Urine Bacteria FEW /hpf (None Seen); Urine Blood Negative /uL (Negative); Urine Clarity Clear (Clear); Urine Color Light-Yellow (Yellow); Urine Hyaline Cast FEW /lpf (0 - 2); Urine Mucus FEW (None Seen); Urine Protein, UAD Negative (Negative); Urine Specific Gravity 1.015 (1.001-1.035); Urine Urobilinogen Normal (Negative); Urine WBC 11 /hpf (0 - 5)
[2024-04-01] VITALS (8 sets, daily range): BP systolic 89–120; BP diastolic 39–75; PULSE 77–93; RESP 14–16; TEMP 97.8–99; O2SAT 95–98
[2024-04-01 06:29] LABS: Eosinophils # (auto) 0.1 10 ^3/uL (0-0.8); Eosinophils % (auto) 0.7 % (0.0-7.0); Hematocrit 32.3 % (36.0-46.0); Lymphocytes # (auto) 1.6 10 ^3/uL (0.4-5.4)
[2024-04-01 06:34] LABS: Basophils # (auto) 0 10 ^3/uL (0-0.2); Basophils % (auto) 0.3 % (0.0-2.0); Hemoglobin 10.6 g/dL (12.2-16.2); Lymphocytes % (auto) 17.4 % (10.0-50.0); Mean Corpuscular Hemoglobin 22.6 pg (28.0-32.0); Mean Corpuscular Hgb Conc. 32.9 g/dL (32.0-36.0); Mean Corpuscular Volume 68.7 fL (80.0-100.0); Monocytes # (auto) 1.4 10 ^3/uL (0-1.3); Monocytes % (auto) 15.3 % (0.0-12.0); Neutrophils # (auto) 6.2 10 ^3/uL (1.6-8.6); Neutrophils % (auto) 66.3 % (37.0-80.0); White Blood Cell 9.4 10^3/uL (4.4-10.8)
[2024-04-01 06:41] LABS: Alanine Aminotransferase 25 U/L (7-40); Albumin 4.1 g/dL (3.2-4.8); Alkaline Phosphatase 71 U/L (46-116); Anion Gap 10 (5-15); Aspartate Aminotransferase 32 U/L (13-40); Blood Urea Nitrogen 21 mg/dL (9-23); Calcium 8.9 mg/dL (8.7-10.4); Carbon Dioxide 27 mmol/L (20-30); Chloride 103 mmol/L (98-107); Glucose 177 mg/dL (74-106); Potassium 3.7 mmol/L (3.5-5.1); Sodium 140 mmol/L (136-145)
[2024-04-01 06:42] LABS: Bilirubin, Total 0.7 mg/dL (0.2-1.0); Total Protein 7.2 g/dL (5.7-8.2)
[2024-04-01 06:56] LABS: Red Cell Distribution Width 21.4 % (11.8-14.3)
[2024-04-02] VITALS (7 sets, daily range): BP systolic 82–104; BP diastolic 42–45; PULSE 59–85; RESP 14–17; TEMP 36.9; O2SAT 94–98
== END 2024-04-02 12:55 | disposition home health service (06) | DRG 720 ==
LOC: ER 08:13 → TELE 15:05 → TELE-WESTW 18:27
PROVIDERS: ADMIT Nurse Practitioner Family; ATTEND Internal Medicine Cardiovascular Disease
PROC: 30233N1 Transfusion of Nonautologous Red Blood Cells into Peripheral Vein, Percutaneous Approach (ICD-10-PCS; principal; 2024-03-27)
DX: A41.9 Sepsis, unspecified organism (principal); R65.21 Severe sepsis with septic shock; G93.41 Metabolic encephalopathy; D62 Acute posthemorrhagic anemia; D69.6 Thrombocytopenia, unspecified; E86.9 Volume depletion, unspecified; E78.00 Pure hypercholesterolemia, unspecified; F03.93 Unspecified dementia, unspecified severity, with mood disturbance; F32.A Depression, unspecified; I10 Essential (primary) hypertension; N30.00 Acute cystitis without hematuria; K57.30 Diverticulosis of large intestine without perforation or abscess without bleeding; R26.89 Other abnormalities of gait and mobility; I25.10 Atherosclerotic heart disease of native coronary artery without angina pectoris; E11.9 Type 2 diabetes mellitus without complications; Z87.891 Personal history of nicotine dependence; Z86.73 Personal history of transient ischemic attack (TIA), and cerebral infarction without residual deficits; Z90.710 Acquired absence of both cervix and uterus; Z90.49 Acquired absence of other specified parts of digestive tract; Z79.899 Other long term (current) drug therapy
CPT/HCPCS: 36415; 70450; 71045; 74177; 80048; 80053; 81001; 82270; 82607; 82728; 82746; 82962; 83540; 83550; 83615; 84484; 85014; 85018; 85025; 85045; 86850; 86900; 86901; 86920; 87040; 87086; 87493; 93005; 93306; 97110; 97116; 97163; 97530; 99291; G0378; J1956; J2470

== ENCOUNTER → 2024-04-07 | Outpatient (CLI) | payer MEDICARE, OTHER ==
[~2024-04-07] MED LIST changes: +METH-1286 PO; +RIVA1DIS TD; +SITA50TA PO
[2024-04-07 11:24] VITALS: BP 106/52; PULSE 93; RESP 20; O2SAT 97
[2024-04-07] MEDS: MVI in SODIUM CHLORIDE 0.9% 500 ML IVB ONE (11:24)
[2024-04-07] MEDS: MULTIPLE VIT 10 ML IV ONE (11:39)
[2024-04-07 14:00] VITALS: BP 106/52; PULSE 86; RESP 18; O2SAT 97
== END | disposition home or self-care (01) ==
LOC: CHF HDHVI 11:26
PROVIDERS: ATTEND Internal Medicine Cardiovascular Disease
DX: E86.0 Dehydration (principal); I25.10 Atherosclerotic heart disease of native coronary artery without angina pectoris; F32.A Depression, unspecified; I10 Essential (primary) hypertension; E78.00 Pure hypercholesterolemia, unspecified; E11.9 Type 2 diabetes mellitus without complications; F03.90 Unspecified dementia, unspecified severity, without behavioral disturbance, psychotic disturbance, mood disturbance, and anxiety; Z90.710 Acquired absence of both cervix and uterus; Z79.899 Other long term (current) drug therapy; Z87.891 Personal history of nicotine dependence; Z86.73 Personal history of transient ischemic attack (TIA), and cerebral infarction without residual deficits; Z90.49 Acquired absence of other specified parts of digestive tract
CPT/HCPCS: 96365; 96366; G0463; J3411; J3475; J7040; 96360; 96361

== ENCOUNTER → 2024-05-06 | Outpatient (CLI) | payer MEDICARE, OTHER ==
[2024-05-06 09:55] VITALS: BP 123/48; PULSE 91; RESP 16; O2SAT 98
[2024-05-06] MEDS: MVI in SODIUM CHLORIDE 0.9% 500 ML IVB ONE (09:55)
[2024-05-06] MEDS: MULTIPLE VIT 10 ML IV ONE (10:01)
== END | disposition home or self-care (01) ==
LOC: CHF HDHVI 09:52
PROVIDERS: ATTEND Internal Medicine Cardiovascular Disease
DX: E86.0 Dehydration (principal); I10 Essential (primary) hypertension; E11.9 Type 2 diabetes mellitus without complications; F32.A Depression, unspecified; E78.00 Pure hypercholesterolemia, unspecified; Z87.891 Personal history of nicotine dependence; Z79.899 Other long term (current) drug therapy
CPT/HCPCS: 96365; 96366; G0463; J7040; 96360; 96361

== ENCOUNTER 2024-05-31 09:12 | Inpatient (IN) | payer MEDICARE, OTHER ==
[~2024-05-31] VITALS: Ht 162.6 cm; Wt 56.4 kg
[2024-05-31 10:18] LABS: Basophils # (auto) 0.1 10 ^3/uL (0-0.2); Basophils % (auto) 1.3 % (0.0-2.0); White Blood Cell 4.4 10^3/uL (4.4-10.8)
[2024-05-31 10:23] LABS: Eosinophils # (auto) 0.2 10 ^3/uL (0-0.8); Eosinophils % (auto) 4.4 % (0.0-7.0); Hematocrit 27.1 % (36.0-46.0); Hemoglobin 8.4 g/dL (12.2-16.2); Lymphocytes # (auto) 0.9 10 ^3/uL (0.4-5.4); Lymphocytes % (auto) 20.2 % (10.0-50.0); Mean Corpuscular Hemoglobin 23.5 pg (28.0-32.0); Mean Corpuscular Hgb Conc. 31.2 g/dL (32.0-36.0); Mean Corpuscular Volume 75.2 fL (80.0-100.0); Monocytes # (auto) 0.5 10 ^3/uL (0-1.3); Monocytes % (auto) 10.4 % (0.0-12.0); Neutrophils # (auto) 2.8 10 ^3/uL (1.6-8.6); Neutrophils % (auto) 63.7 % (37.0-80.0); Platelet Count (auto) 170 10^3/uL (140-450); Red Cell Distribution Width 24.3 % (11.8-14.3)
[2024-05-31 10:35] VITALS: PULSE 81; RESP 12; O2SAT 99
[2024-05-31 10:37] LABS: Alanine Aminotransferase 13 U/L (7-40); Albumin 3.7 g/dL (3.2-4.8); Alkaline Phosphatase 64 U/L (46-116); Anion Gap 7 (5-15); Aspartate Aminotransferase 17 U/L (13-40); Blood Urea Nitrogen 27 mg/dL (9-23); Calcium 9.1 mg/dL (8.7-10.4); Carbon Dioxide 26 mmol/L (20-31); Chloride 109 mmol/L (98-107); Glucose 115 mg/dL (74-106); Potassium 4.4 mmol/L (3.5-5.1); Sodium 142 mmol/L (136-145)
[2024-05-31 10:38] LABS: Bilirubin, Total 0.5 mg/dL (0.2-1.0); Total Protein 6.4 g/dL (5.7-8.2)
[2024-05-31 13:26] LABS: Urine Bacteria FEW /hpf (None Seen); Urine Blood Negative /uL (Negative); Urine Clarity Clear (Clear); Urine Color Light-Yellow (Yellow); Urine Protein, UAD TRACE (Negative); Urine Specific Gravity 1.016 (1.001-1.035); Urine Urobilinogen Normal (Negative); Urine WBC 3 /hpf (0 - 5); Urine pH 5.5 (5.0-9.0)
[2024-05-31] MEDS ORDERED: DEXTROSE (50%) 50ML SYRG IV PRN (14:45)
[2024-05-31] MEDS ORDERED: NITROGLYCERIN 0.4 MG SL TAB SL PRN (14:45)
[2024-05-31] MEDS ORDERED: MORPHINE SULFATE INJ 2 MG/ml SYRG IV PRN (14:45)
[2024-05-31 14:54] LABS: Triglycerides 65 mg/dL (< 150)
[2024-05-31 14:55] LABS: LDL Cholesterol 115 mg/dL (< 100)
[2024-05-31 14:56] LABS: Cholesterol 177 mg/dL (< 200); HDL Cholesterol 53 mg/dL (40-59)
[2024-05-31 14:56] LABS: Amphetamine Screen, Urine Neg (NEGATIVE); Barbiturate Scree,Urine Neg (NEGATIVE); Benzodiazephine Screen, Urine Neg (NEGATIVE); Cocaine Screen, Urine Neg (NEGATIVE); Opiate Scree,Urine Neg (NEGATIVE)
[2024-05-31 14:57] LABS: Cannabinoid Screen, Urine Neg (NEGATIVE); Phencyclidine Screen, Urine Neg (NEGATIVE)
[2024-05-31] MEDS: SODIUM CHLORIDE 0.9% 1,000 ML IV SCH (15:04)
[2024-05-31 15:57] LABS: % Iron Saturation 7.1 % (15-50)
[2024-05-31 17:00] VITALS: BP 155/82; PULSE 82; RESP 18; TEMP 98.8; O2SAT 99
[2024-05-31] MEDS: ACCU-CHEK COMFORT CURVE STRIP VI SCH (17:00)
[2024-05-31] MEDS: InsuLIN REG 1unit/0.01ml Soln (100units/ml) SC SCH (17:00)
[2024-05-31 17:14] LABS: Anisocytosis Slight; Macrocytosis Slight
[2024-05-31 17:15] LABS: Large Platelets FEW; Ovalocytes FEW; Platelet Estimate Adequa
[2024-05-31 17:22] LABS: Platelet Count (auto) 170 10^3/uL (140-450)
[2024-05-31 17:23] LABS: Hypochromia Slight
[2024-05-31 21:00] VITALS: BP 159/69; PULSE 88; RESP 18; TEMP 98.5; O2SAT 97
[2024-05-31] MEDS: ATORVASTATIN 20 MG TAB PO SCH (21:29)
[2024-05-31] MEDS: ENALAPRIL MALEATE 2.5 MG TAB PO SCH (21:30)
[2024-05-31] MEDS: DONEPEZIL HYDROCHLORIDE 5 MG TAB PO SCH (21:31)
[2024-05-31] MEDS: CARVEDILOL 3.125 MG TAB PO SCH (21:31)
[2024-05-31] MEDS: VENLAFAXINE HCL 37.5MG TABLET PO SCH (21:32)
[2024-05-31] MEDS: METHENAMINE HIPPURATE 1 GM PO SCH (22:00)
[2024-05-31] MEDS: ROPINIROLE HYDROCHLORIDE 0.25 MG PO SCH (22:00)
[2024-06-01] VITALS (9 sets, daily range): BP systolic 107–165; BP diastolic 55–86; PULSE 79–87; RESP 17–20; TEMP 97.6–98.2; O2SAT 94–99
[2024-06-01 07:28] LABS: Basophils # (auto) 0.1 10 ^3/uL (0-0.2); Hemoglobin 9.2 g/dL (12.2-16.2)
[2024-06-01 07:31] LABS: Basophils % (auto) 1.4 % (0.0-2.0); Eosinophils # (auto) 0.1 10 ^3/uL (0-0.8); Eosinophils % (auto) 2.1 % (0.0-7.0); Hematocrit 28.4 % (36.0-46.0); Lymphocytes # (auto) 1.2 10 ^3/uL (0.4-5.4); Lymphocytes % (auto) 21.8 % (10.0-50.0); Mean Corpuscular Hemoglobin 23.9 pg (28.0-32.0); Mean Corpuscular Hgb Conc. 32.3 g/dL (32.0-36.0); Mean Corpuscular Volume 74.1 fL (80.0-100.0); Monocytes # (auto) 0.5 10 ^3/uL (0-1.3); Monocytes % (auto) 9.1 % (0.0-12.0); Neutrophils # (auto) 3.7 10 ^3/uL (1.6-8.6); Neutrophils % (auto) 65.6 % (37.0-80.0); Platelet Count (auto) 174 10^3/uL (140-450); Red Blood Cells 3.84 10^6/uL (4.0-5.20); Red Cell Distribution Width 23.3 % (11.8-14.3); White Blood Cell 5.6 10^3/uL (4.4-10.8)
[2024-06-01 07:43] LABS: Alanine Aminotransferase 12 U/L (7-40); Albumin 3.7 g/dL (3.2-4.8); Alkaline Phosphatase 65 U/L (46-116); Anion Gap 7 (5-15); Aspartate Aminotransferase 17 U/L (13-40); BUN/Creatinine Ratio 31.4 (10.0-20.0); Bilirubin, Total 0.5 mg/dL (0.2-1.0); Blood Urea Nitrogen 22 mg/dL (9-23); Calcium 9.1 mg/dL (8.7-10.4); Carbon Dioxide 26 mmol/L (20-31); Chloride 108 mmol/L (98-107); Glucose 101 mg/dL (74-106); Potassium 4.3 mmol/L (3.5-5.1); Sodium 141 mmol/L (136-145); Total Protein 6.3 g/dL (5.7-8.2)
[2024-06-01] MEDS: ENOXAPARIN SOD 40 MG/0.4 ML SYRINGE SC SCH (10:00)
[2024-06-01] MEDS: ASPirin 81 mg TAB PO SCH (11:01)
[2024-06-01] MEDS: CITALOPRAM HYDROBR 20 MG TAB PO SCH (11:02)
[2024-06-01] MEDS: CLOPIDOGREL BISULFATE 75 MG TAB PO SCH (11:03)
[2024-06-01 11:26] LABS: Ferritin 8.2 ng/mL (10-291)
[2024-06-01 11:41] LABS: Folate (Folic Acid) 33.29 ng/mL (>5.38)
[2024-06-01] MEDS: IRON SUCROSE COMPLEX 100 ML IV ONE (15:00)
[2024-06-01] MEDS: PATIENTS OWN MEDICATION (EPOGEN 10,000 UNITS) SC ONE (16:00)
[2024-06-01] MEDS ORDERED: FERROUS SULFATE 325mg EC TAB PO SCH (18:00)
[2024-06-01] MEDS: SODIUM FERR GLUC 62.5MG/5ML 125 MG in SODIUM CHL 0.9% 100 ML IV ONE (18:55)
[2024-06-02] VITALS (7 sets, daily range): BP systolic 101–166; BP diastolic 54–113; PULSE 76–83; RESP 17–19; TEMP 97.7–98.2; O2SAT 93–96
[2024-06-02 06:04] LABS: Basophils # (auto) 0.1 10 ^3/uL (0-0.2); Basophils % (auto) 1.2 % (0.0-2.0); Eosinophils # (auto) 0.3 10 ^3/uL (0-0.8); Eosinophils % (auto) 4.5 % (0.0-7.0); Hematocrit 27.7 % (36.0-46.0); Hemoglobin 8.8 g/dL (12.2-16.2); Lymphocytes # (auto) 1.4 10 ^3/uL (0.4-5.4); Lymphocytes % (auto) 24.9 % (10.0-50.0); Mean Corpuscular Hemoglobin 23.8 pg (28.0-32.0); Mean Corpuscular Hgb Conc. 31.8 g/dL (32.0-36.0); Mean Corpuscular Volume 74.6 fL (80.0-100.0); Monocytes # (auto) 0.6 10 ^3/uL (0-1.3); Monocytes % (auto) 10.3 % (0.0-12.0); Neutrophils # (auto) 3.4 10 ^3/uL (1.6-8.6); Neutrophils % (auto) 59.1 % (37.0-80.0); Platelet Count (auto) 175 10^3/uL (140-450); Red Blood Cells 3.72 10^6/uL (4.0-5.20); White Blood Cell 5.8 10^3/uL (4.4-10.8)
[2024-06-02 06:05] LABS: Red Cell Distribution Width 23.1 % (11.8-14.3)
[2024-06-02 06:11] LABS: Chloride 109 mmol/L (98-107); Potassium 3.7 mmol/L (3.5-5.1); Sodium 142 mmol/L (136-145)
[2024-06-02 06:12] LABS: Anion Gap 8 (5-15); Calcium 8.8 mg/dL (8.7-10.4); Carbon Dioxide 25 mmol/L (20-31)
[2024-06-02 06:17] LABS: BUN/Creatinine Ratio 22.1 (10.0-20.0); Blood Urea Nitrogen 17 mg/dL (9-23); Glucose 108 mg/dL (74-106)
[2024-06-02] MEDS: OMEPRAZOLE-SOD BICARB 20 MG POWDER PO SCH (11:44)
[2024-06-02] MEDS: SODIUM FERR GLUC 62.5MG/5ML 125 MG in SODIUM CHL 0.9% 100 ML IV SCH (11:58)
[2024-06-02] MEDS ORDERED: IRON SUCROSE COMPLEX 100 ML IV SCH (12:00)
[2024-06-02 17:01] LABS: INR 1.13 (0.9-1.15); Prothrombin Time 11.9 sec (9.3-11.8)
[2024-06-02] MEDS: CYANOCOBALAMIN (B-12) 1000 MCG/1 ML VIAL IM ONE (17:04)
[2024-06-03] VITALS (14 sets, daily range): BP systolic 107–167; BP diastolic 45–83; PULSE 76–92; RESP 15–20; TEMP 97.7–98.8; O2SAT 94–99
[2024-06-03 05:08] LABS: RPR Non Reactive (Non Reactive)
[2024-06-03] MEDS: ACETAMINOPHEN 325 MG TAB PO PRN (05:36)
[2024-06-03 08:30] LABS: Basophils # (auto) 0 10 ^3/uL (0-0.2); Basophils % (auto) 0.4 % (0.0-2.0); Eosinophils # (auto) 0.1 10 ^3/uL (0-0.8); Eosinophils % (auto) 1.5 % (0.0-7.0); Hematocrit 35.4 % (36.0-46.0); Hemoglobin 11.5 g/dL (12.2-16.2); Lymphocytes # (auto) 1.3 10 ^3/uL (0.4-5.4); Mean Corpuscular Hemoglobin 24.8 pg (28.0-32.0); Mean Corpuscular Hgb Conc. 32.4 g/dL (32.0-36.0); Mean Corpuscular Volume 76.6 fL (80.0-100.0); Monocytes # (auto) 0.7 10 ^3/uL (0-1.3); Monocytes % (auto) 10.6 % (0.0-12.0); Neutrophils # (auto) 4.6 10 ^3/uL (1.6-8.6); Neutrophils % (auto) 68.5 % (37.0-80.0); Nucleated Red Blood Cells % 0.1 %; Platelet Count (auto) 182 10^3/uL (140-450); Red Blood Cells 4.62 10^6/uL (4.0-5.20); Red Cell Distribution Width 22.8 % (11.8-14.3); White Blood Cell 6.7 10^3/uL (4.4-10.8)
[2024-06-03] MEDS ORDERED: MIDAZOLAM HCL 2MG/2ML 2ml VIAL (1mg/ml) ONE (11:59)
[2024-06-03] MEDS ORDERED: fentaNYL CITRATE 100 MCG/2 ML VL ONE (11:59)
[2024-06-03] MEDS ORDERED: LIDOCAINE VISCOUS 2% 15ML UD ONE (12:03)
[2024-06-03] MEDS: LIDOCAINE VISCOUS 2% 15ML UD MT ONE (12:29)
[2024-06-03] MEDS ORDERED: PROPOFOL 10 MG/ML 20 ML IV ONE (12:33)
[2024-06-03] MEDS ORDERED: LEVALBUTEROL HCL 1.25 MG/3 ML NEB NEB PRN (15:30)
[2024-06-03] MEDS ORDERED: IPRATROPIUM BROM 0.5 MG/2.5ML INH SOL NEB PRN (15:30)
[2024-06-03] MEDS: FUROSEMIDE 40 MG/4 ML VIAL IV ONE (18:40)
[2024-06-04] VITALS (11 sets, daily range): BP systolic 118–161; BP diastolic 47–67; PULSE 78–89; RESP 16–18; TEMP 97.7–98.6; O2SAT 93–98
[2024-06-04] MEDS: POTASSIUM CHL 20 Meq TABLET PO ONE (01:54)
[2024-06-04 07:47] LABS: Basophils # (auto) 0 10 ^3/uL (0-0.2); Eosinophils # (auto) 0.1 10 ^3/uL (0-0.8); Mean Corpuscular Hemoglobin 25.2 pg (28.0-32.0); Mean Corpuscular Hgb Conc. 32.9 g/dL (32.0-36.0); Monocytes # (auto) 0.8 10 ^3/uL (0-1.3)
[2024-06-04 07:50] LABS: Basophils % (auto) 0.1 % (0.0-2.0); Eosinophils % (auto) 0.6 % (0.0-7.0); Hematocrit 33.5 % (36.0-46.0); Lymphocytes # (auto) 1.4 10 ^3/uL (0.4-5.4); Lymphocytes % (auto) 10.5 % (10.0-50.0); Mean Corpuscular Volume 76.7 fL (80.0-100.0); Neutrophils # (auto) 11.2 10 ^3/uL (1.6-8.6); Neutrophils % (auto) 82.8 % (37.0-80.0); Platelet Count (auto) 157 10^3/uL (140-450); Red Blood Cells 4.36 10^6/uL (4.0-5.20); White Blood Cell 13.5 10^3/uL (4.4-10.8)
[2024-06-04 07:55] LABS: Chloride 106 mmol/L (98-107); Potassium 4.1 mmol/L (3.5-5.1); Sodium 140 mmol/L (136-145)
[2024-06-04 07:56] LABS: Anion Gap 6 (5-15); Carbon Dioxide 28 mmol/L (20-31)
[2024-06-04 07:57] LABS: Calcium 9.3 mg/dL (8.7-10.4)
[2024-06-04 08:01] LABS: Glucose 116 mg/dL (74-106)
[2024-06-04 08:02] LABS: BUN/Creatinine Ratio 17.9 (10.0-20.0); Blood Urea Nitrogen 15 mg/dL (9-23); Magnesium 1.8 mg/dL (1.6-2.6)
[2024-06-04 08:32] LABS: Red Cell Distribution Width 22.9 % (11.8-14.3)
[2024-06-04] MEDS: FUROSEMIDE 20 MG/2 ML VIAL IV SCH (09:08)
[2024-06-04 09:50] LABS: Platelet Estimate Adequate
[2024-06-04 09:51] LABS: Anisocytosis Slight; Ovalocytes FEW
[2024-06-04] MEDS: MAGNESIUM SULFATE 1GM/100ML 100 ML IV ONE (11:40)
[2024-06-04] MEDS: GOLYTELY 4L KIT PO ONE ×2 (12:30→14:00)
[2024-06-04] MEDS: SODIUM CHLORIDE 0.9% 1,000 ML IV SCH (12:30)
[2024-06-04] MEDS: IRON SUCROSE COMPLEX 100 ML IV SCH (15:31)
[2024-06-05] VITALS (9 sets, daily range): BP systolic 93–144; BP diastolic 48–63; PULSE 76–82; RESP 15–21; TEMP 97.3–97.7; O2SAT 93–100
[2024-06-05] MEDS: MAGNESIUM CITRATE SOLUTION 300 ML BTL PO ONE (06:09)
[2024-06-05] MEDS: GOLYTELY 4L KIT PO ONE (06:09)
[2024-06-05 10:19] LABS: Basophils # (auto) 0 10 ^3/uL (0-0.2); Eosinophils # (auto) 0.3 10 ^3/uL (0-0.8); Monocytes # (auto) 0.8 10 ^3/uL (0-1.3); Neutrophils # (auto) 7.5 10 ^3/uL (1.6-8.6); White Blood Cell 9.9 10^3/uL (4.4-10.8)
[2024-06-05 10:21] LABS: Basophils % (auto) 0.2 % (0.0-2.0); Hematocrit 35.6 % (36.0-46.0); Hemoglobin 11.7 g/dL (12.2-16.2); Lymphocytes # (auto) 1.3 10 ^3/uL (0.4-5.4); Mean Corpuscular Hemoglobin 25.5 pg (28.0-32.0); Mean Corpuscular Hgb Conc. 32.8 g/dL (32.0-36.0); Mean Corpuscular Volume 77.7 fL (80.0-100.0); Monocytes % (auto) 7.7 % (0.0-12.0); Neutrophils % (auto) 76.1 % (37.0-80.0); Platelet Count (auto) 174 10^3/uL (140-450); Red Blood Cells 4.58 10^6/uL (4.0-5.20); Red Cell Distribution Width 23.2 % (11.8-14.3)
[2024-06-05] MEDS ORDERED: MIDAZOLAM HCL 2MG/2ML 2ml VIAL (1mg/ml) ONE (16:04)
[2024-06-05] MEDS ORDERED: PROPOFOL 10 MG/ML 20 ML IV ONE (16:04)
[2024-06-05] MEDS ORDERED: fentaNYL CITRATE 100 MCG/2 ML VL ONE (16:04)
[2024-06-05] MEDS ORDERED: LIDOCAINE 1% INJ PF 5ML AMP ONE (16:04)
[2024-06-05] MEDS ORDERED: KETAMINE 50mg/ML 1ml syringe ONE (16:04)
[2024-06-05] MEDS ORDERED: ONDANSETRON HCL 4 MG/2 ML VIAL ONE (16:56)
[2024-06-06 05:00] VITALS: BP 99/59; PULSE 86; RESP 17; TEMP 98.3; O2SAT 93
[2024-06-06 08:05] VITALS: PULSE 80; RESP 17; O2SAT 100
[2024-06-06] MEDS: hydrALAZINE HCL 20 MG/ML VL IV PRN (08:51)
[2024-06-06 09:00] VITALS: BP 174/61; PULSE 80; RESP 17; TEMP 98.3; O2SAT 100
[2024-06-06] MEDS: ONDANSETRON HCL 4 MG/2 ML VIAL IV ONE (10:38)
[2024-06-06 13:00] VITALS: BP 140/53; PULSE 19; RESP 96; TEMP 98.2; O2SAT 96
[2024-06-06 15:47] VITALS: BP 132/54; PULSE 78; RESP 19; TEMP 36.8; O2SAT 96
[2024-06-06 17:00] VITALS: BP 154/57; PULSE 80; RESP 20; TEMP 98.6; O2SAT 97
== END 2024-06-06 17:30 | disposition home or self-care (01) | DRG 663 ==
LOC: ER 09:12 → TELE 14:35 → OVERFLOW 15:32 → CENTRAL 16:56
PROVIDERS: ADMIT Internal Medicine; ATTEND Internal Medicine
PROC: 0DB98ZX Excision of Duodenum, Via Natural or Artificial Opening Endoscopic, Diagnostic (ICD-10-PCS; 2024-06-03)
PROC: 0DB68ZX Excision of Stomach, Via Natural or Artificial Opening Endoscopic, Diagnostic (ICD-10-PCS; 2024-06-03)
PROC: 30233N1 Transfusion of Nonautologous Red Blood Cells into Peripheral Vein, Percutaneous Approach (ICD-10-PCS; principal; 2024-06-03 12:30)
PROC: 0DBL8ZZ Excision of Transverse Colon, Via Natural or Artificial Opening Endoscopic (ICD-10-PCS; 2024-06-05)
DX: D50.9 Iron deficiency anemia, unspecified (principal); G93.41 Metabolic encephalopathy; K22.10 Ulcer of esophagus without bleeding; K22.2 Esophageal obstruction; K44.9 Diaphragmatic hernia without obstruction or gangrene; E11.9 Type 2 diabetes mellitus without complications; K83.8 Other specified diseases of biliary tract; E78.5 Hyperlipidemia, unspecified; K63.5 Polyp of colon; I95.1 Orthostatic hypotension; E86.9 Volume depletion, unspecified; K29.70 Gastritis, unspecified, without bleeding; I10 Essential (primary) hypertension; F32.A Depression, unspecified; F03.93 Unspecified dementia, unspecified severity, with mood disturbance; K57.30 Diverticulosis of large intestine without perforation or abscess without bleeding; K55.20 Angiodysplasia of colon without hemorrhage; I25.10 Atherosclerotic heart disease of native coronary artery without angina pectoris; Z90.710 Acquired absence of both cervix and uterus; Z87.891 Personal history of nicotine dependence; Z83.3 Family history of diabetes mellitus; Z87.440 Personal history of urinary (tract) infections; Z90.49 Acquired absence of other specified parts of digestive tract; Z79.82 Long term (current) use of aspirin; Z79.899 Other long term (current) drug therapy
CPT/HCPCS: 36415; 70450; 71045; 80048; 80053; 80061; 80307; 81001; 82140; 82306; 82533; 82607; 82728; 82746; 82962; 83036; 83540; 83550; 83735; 84443; 84484; 85025; 85610; 85730; 86592; 86850; 86900; 86901; 86920; 93005; 93886; 97110; 97116; 97163; 97530; G0378; J1756; J1815; J2250; J2405; J2704

== ENCOUNTER → 2024-09-28 | Outpatient (CLI) | payer MEDICARE, OTHER ==
[~2024-09-28] MED LIST changes: -ASPI81CH43 PO; -LEVO500T31 PO
--- NOTE | 2024-10-02 13:23 | DVHSR ---
APPROVED REPORT EXAM: Two-dimensional and M-mode echocardiogram with Doppler and color Doppler. DIMENSIONS LVDd3.8 (3.8-5.7cm)LA (2D) (1.9-4.0cm)Aortic Root (2.0-3.7cm) LVDs2.7 (2.5-4.0cm)LA (MM) (1.9-4.0cm)Aortic Cusp Exc (1.5-2.0cm) EF (%) 57.5 (55-70%)Rt. Atrium (1.9-4.0cm)Asc. Aorta cm IVSd1.1 (0.7-1.1cm)RV (D) (1.8-2.4cm) PWd1.1 (0.7-1.1cm) Mitral Valve MitralMitral Stenosis E/A ratio0.02D MVAcm2 Aortic Valve Aortic ValveAortic Stenosis V10.88m/Freddy Mean GR.8mmHg V22.01m/Freddy Peak GR.16mmHg AI P 1/2 Wfmi253.07ms LEFT VENTRICLE The Ejection Fraction is >55%. MITRAL VALVE The mitral valve is normal in structure and function. Mitral regurgitation is trace. PULMONIC VALVE The pulmonic valve is not well visualized. TRICUSPID VALVE The tricuspid valve is grossly normal. AORTIC VALVE The aortic valve opens well. There is moderate aortic regurgitation. GREAT VESSELS The aortic root is normal size. PERICARDIAL EFFUSION There is no pericardial effusion. Other Information Technically limited study due to body habitus. Conclusion EF 55%
== END | disposition home or self-care (01) ==
LOC: Rad HDHVI 14:08
PROVIDERS: ATTEND Internal Medicine Cardiovascular Disease
DX: I35.1 Nonrheumatic aortic (valve) insufficiency (principal); I10 Essential (primary) hypertension; R42 Dizziness and giddiness
CPT/HCPCS: 93306; 93880

== ENCOUNTER 2025-03-24 13:32 | Emergency (ER) | payer MEDICARE, OTHER ==
[~2025-03-24] VITALS: Ht 162.6 cm; Wt 60.8 kg
--- NOTE | 2025-03-24 14:25 | DVH ---
CT HEAD WITHOUT CONTRAST INDICATION: HEAD INJURY EXAM DATE: 03/24/2025 01:49 PM COMPARISON: CT HEAD WITHOUT CONTRAST on DOS: 05/31/24, CT HEAD WITHOUT CONTRAST on DOS: 03/27/24, HEAD W ITHOUT CONTRAST on DOS: 08/27/22 RADIATION DOSE: CTDIvol: 58 mGy, DLP: 1149 mGy*cm PROCEDURE: CT scans of the head were obtained from the vertex to the skull base. Sagittal and coronal reconstructions were provided. All CT scans at this medical facility are performed using dose modulation techniques as appropriate t o a performed exam including the following: Automated exposure control was utilized; adjustment of th e MA and/or KV according to patient size; and use of iterative reconstruction technique. FINDINGS: There is sulcal and ventricular prominence. The brainshows normal morphology and romero-whi te matter differentiation, without intracranial hemorrhage, extra-axial fluid collection, mass effect or acute large vessel infarct. The ventricles are normal in size. The basal cisterns are patent. The skull and visible facial bones are intact. The paranasal sinuses, mastoid air cells and middle ear c avities are well-aerated. The soft tissues of the scalp are unremarkable. IMPRESSION: No acute intracranial abnormality.
--- NOTE | 2025-03-24 14:55 | ED.PDOC ---
History of Present Illness HPI Comments 80-YEAR-OLD FEMALE BROUGHT IN BY DAUGHTER, PATIENT STATES SHE WAS TAKING SHOWER WHEN SHE HAD A SLIP AND FALL. STATES SHE MORE SO SLID DOWN INTO THE TUB PATIENT DID HIT THE BACK OF HER HEAD. DENIES ANY LOSS OF CONSCIOUSNESS. DAUGHTER STATES IT CALLED THEIR HOME HEALTH NURSE AND THE NURSE ADVISED FURTHER HER TO COME INTO THE EMERGENCY DEPARTMENT SHE IS ON BLOOD THINNERS. PATIENT STATES HE DOES HAVE MILD LUMP IN THE BACK OF HER HEAD BUT DENIES ANY HEADACHE. Chief Complaint: Fall Injury Time Seen by MD: 13:37 Primary Care Provider: UNKNOWN Reviewed Notes: Nurses Notes Allergies: Coded Allergies: NO KNOWN ALLERGIES (Unverified , 06/11/22) Home Meds Active Scripts Nitrofurantoin (Nitrofurantoin) 100 Mg Cap, 1 CAP PO BID, #10 CAP Prov:JING PARK MD 08/30/22 Donepezil Hydrochloride (Aricept) 10 Mg Tab, 10 MG PO DAILY, #90 TAB Prov:MITCHELL BOX MD 06/15/22 Enalapril Maleate (VASOTEC TABLET) 2.5 Mg Tb, 2.5 MG PO Q12HR, #60 Prov:OSEI CHAWLA MD 09/18/18 Carvedilol (COREG) 3.125 Mg Tab, 3.125 MG PO Q12HR, #60 TAB Prov:OSEI CHAWLA MD 09/18/18 Clopidogrel Bisulfate (Plavix) 75 Mg Tab, 75 MG PO DAILY, #60 TAB Prov:OSEI CHAWLA MD 09/18/18 Atorvastatin Calcium (ATORVASTATIN CALCIUM) 20 Mg Tab, 40 MG PO HS, #30 TAB Prov:OSEI CHAWLA MD 09/18/18 Reported Medications Rivastigmine (Rivastigmine Transdermal) 4.6 Mg/24 Hr Dis, 4.6 MG TD, DIS 03/28/24 Sitagliptin Phosphate (Januvia) 50 Mg Tab, 1 TAB PO DAILY, #30 TAB 5 Refills 03/28/24 Vortioxetine Hydrobromide (Trintellix) 20 Mg Tab, 20 MG PO DAILY, TAB 24 Methenamine Hippurate (Hiprex) 1 Gm Tab, 1 GM PO BID, TAB 03/28/24 Escitalopram Oxalate (ESCITALOPRAM OXALATE) 20 Mg Tab, 1 TAB PO DAILY 10/17/22 Metformin Hydrochloride (Metformin Hcl) 1,000 Mg Tab, 1 TAB PO BID 06/11/22 Ropinirole Hydrochloride (Ropinirole Hcl) 0.25 Mg Tab, 1 TAB PO BID 06/11/22 Memantine HCl-Donepezil HCl (Namzaric 28-10 mg) 1 Cap Cap 06/11/22 Vortioxetine Hydrobromide (Trintellix) 20 Mg Tab, 1 TAB PO DAILYPRN 06/11/22 Donepezil Hydrochloride (DONEPEZIL HCL) 10 Mg Tab, 1 TAB PO 06/11/22 Venlafaxine Hydrochloride (Effexor Xr) 75 Mg Cap, 75 MG PO BID 01/07/12 Information Source: Patient Mode of Arrival: Ambulatory Past Medical History PAST MEDICAL HISTORY: CAD, Dementia, Depression, DM, High Lipids, HTN, UTI'S Surgical History: Cholecystectomy, Hysterectomy, PTCA RESIDENTIAL PROGRAM COORDINATOR History: No Pertinent RESIDENTIAL PROGRAM COORDINATOR History Family History Family History: No family hx of DM, No family hx of Heart julia Social History Smoker: Quit Greater Than 1 Year Alcohol: Denies ETOH Use Drugs: Denies Drug Use Lives In: Assisted Care Constitutional: denies: chills, diaphoresis, fatigue, fever, malaise, sweats, weakness, others EENTM: denies: blurred vision, double vision, ear bleeding, ear discharge, ear drainage, ear pain, ear ringing, eye pain, eye redness, hearing loss, mouth pain, mouth swelling, nasal discharge, nose bleeding, nose congestion, nose pain, photophobia, tearing, throat pain, throat swelling, voice changes, others Respiratory: denies: cough, hemoptysis, orthopnea, SOB at rest, shortness of breath, SOB with excertion, stridor, wheezing, others Cardiovascular: denies: chest pain, dizzy spells, diaphoresis, Dyspnea on exertion, edema, irregular heart beat, left arm pain, lightheadedness, palpitations, PND, syncope, others Gastrointestinal: denies: abdomen distended, abdominal pain, blood streaked bowels, constipated, diarrhea, dysphagia, difficulty swallowing, hematemesis, melena, nausea, poor appetite, poor fluid intake, rectal bleeding, rectal pain, vomiting, others Genitourinary: denies: abnormal vagina bleeding, burning, dyspareunia, dysuria, flank pain, frequency, hematuria, incontinence, pain, , vagina discharge, urgency, others Neurological: denies: dizziness, fainting, headache, left sided numbness, left sided weakness, numbness, paresthesia, pre-existing deficit, right sided numbness, right sided weakness, seizure, speech problems, tingling, tremors, weakness, others Musculoskeletal: denies: back pain, gout, joint pain, joint swelling, muscle pain, muscle stiffness, neck pain, others Integumetry: denies: bruises, change in color, change in hair/nails, dryness, laceration, lesions, lumps, rash, wounds, others Allergic/Immunocompromised: denies: Difficulty Healing, Frequent Infections, Hives, Itching, others Hematologic/Lymphatic: denies: anemia, blood clots, easy bleeding, easy bruising, swollen glands, others Physical Exam General Appearance: No Apparent Distress, Normal HEENT: Head (SMALL HEMATOMA NOTED TO THE OCCIPITAL OF THE SCALP.), Normal ENT Inspection, Pharynx Normal, TMs Normal Neck: Full Range of Motion, Non-Tender, Normal, Normal Inspection Respiratory: Chest Non-Tender, Lungs Clear, No Accessory Muscle Use, No R espiratory Distress, Normal Breath Sounds Cardiovascular: No Edema, No JVD, No Murmur, No Gallop, Normal Peripheral Pulses, Regular Rate/Rhythm Breast Exam: Deferred Gastrointestinal: No Organomegaly, Non Tender, No Pulsatile Mass, Normal Bowel Sounds, Soft Genitalia: Deferred Pelvic: Deferred Rectal: Deferred Extremities: No calf tenderness, Normal capillary refill, Normal inspection, Normal range of motion, Non-tender, No pedal edema Musculoskeletal : Apperance: Normal Neurologic: Alert, marking clerk II-XII nml as Tested, No Motor Deficits, Normal Affect, Normal Mood, No Sensory Deficits Cerebellar Function: Normal Reflexes: Normal Skin: Dry, Normal Color, Warm Lymphatic: No Adenopathy Was a procedure done? Was a procedure done?: No Differential Dx Considerations may include: CLOSED HEAD INJURY X-Ray, Labs, Meds, VS Vital Signs Date Time Temp Pulse Resp B/P (MAP) Pulse Ox O2 Delivery O2 Flow Rate FiO2 03/24/25 13:42 98.7 93 18 152/71 95 98.7 X-Ray, Labs, Meds, VS Comment IMAGING: X-RAYS AND CT SCANS WERE REVIEWED AND INTERPRETED BY THIS PROVIDER, IMAGING SHOWS NO FRACTURES AND NO PATHOLOGICAL DISEASE. PENDING RADIOLOGY REVIEW. LABORATORY: LABS REVIEWED AND INTERPRETED BY THIS PROVIDER. NO SIGNIFICANT ABN ORMALITIES NOTED. PATIENT HAS PRIOR MEDICAL VISITS REVIEWED. MED RECONCILIATION PERFORMED VITAL SIGNS REVIEWED Time of 1ST Reevaluation: 14:54 Reevaluation 1ST: Improved Patient Education/Counseling: Diagnosis, Treatment, Need For Follow Up (FOLLOW UP WITH PCP NEXT AVAILABLE APPOINTMENT) Family Education/Counseling: Diagnosis SEPSIS Sepsis Screen Date sepsis recognized/suspect: Mar 24, 2025 Time Sepsis recognized/suspect: 1340 Recent Procedure: No On Antibiotic Therapy: No Respiratory Rate >20: No Heart Rate >90: No Temp<36 C (96.8 F) or >38.3 C: No SBP <90 or MAP <65 mmHG: No New Acute Mental Status Change: No Is the patient on CPAP, BIPAP,: No Physician Orders Head Without Contrast (03/24/25 13:47) Vital Signs Date Time Temp Pulse Resp B/P (MAP) Pulse Ox O2 Delivery O2 Flow Rate FiO2 03/24/25 13:42 98.7 93 18 152/71 95 98.7 Departure 1 Departure Time of Disposition: 14:54 Impression: Primary Impression: Closed head injury Qualified Codes: S09.90XA - Unspecified injury of head, initial encounter Disposition: HOME / SELF CARE / HOMELESS Condition: Stable Discharged With: Self Critical Care Note Critical Care Time?: No Stability Stability form required: No Heart Score Heart Score: Heart Score Response (Comments) Value History N/A 0 EKG N/A 0 Age N/A 0 Risk Factors N/A 0 Troponin N/A 0 Total 0 GABRIELLA PANTOJAP Mar 24, 2025 14:55
[2025-03-24 15:06] VITALS: BP 152/66; TEMP 98.5
[2025-03-24 15:16] VITALS: PULSE 96; RESP 18; O2SAT 96
== END 2025-03-24 15:18 | disposition home or self-care (01) ==
LOC: ER 13:32
DX: S00.83XA Contusion of other part of head, initial encounter (principal); I10 Essential (primary) hypertension; E11.9 Type 2 diabetes mellitus without complications; F03.90 Unspecified dementia, unspecified severity, without behavioral disturbance, psychotic disturbance, mood disturbance, and anxiety; F32.A Depression, unspecified; E78.5 Hyperlipidemia, unspecified; Z79.84 Long term (current) use of oral hypoglycemic drugs; Z79.899 Other long term (current) drug therapy; Z87.440 Personal history of urinary (tract) infections; Z90.49 Acquired absence of other specified parts of digestive tract; Z90.710 Acquired absence of both cervix and uterus; W01.198A Fall on same level from slipping, tripping and stumbling with subsequent striking against other object, initial encounter; Y93.E1 Activity, personal bathing and showering; Y92.091 Bathroom in other non-institutional residence as the place of occurrence of the external cause; Y99.8 Other external cause status
CPT/HCPCS: 70450

== ENCOUNTER 2025-06-01 09:07 | Outpatient (CLI) | payer MEDICARE, OTHER ==
[~2025-06-01] VITALS: Ht 162.6 cm; Wt 58.1 kg
[2025-06-01] MEDS ORDERED: ADENOSINE 90 MG/30 ML INJ IV ONE (09:36)
[2025-06-01] MEDS ORDERED: ADENOSINE 49 MG in GIVE UN-DILUTED 0 ML IV ONE (13:45)
== END 2025-06-01 17:00 | disposition home or self-care (01) ==
LOC: Rad HDHVI 09:07
PROVIDERS: ATTEND Internal Medicine Cardiovascular Disease
DX: I49.3 Ventricular premature depolarization (principal); I49.1 Atrial premature depolarization; I25.10 Atherosclerotic heart disease of native coronary artery without angina pectoris; R06.02 Shortness of breath; E78.00 Pure hypercholesterolemia, unspecified; R42 Dizziness and giddiness; E11.40 Type 2 diabetes mellitus with diabetic neuropathy, unspecified; Z82.49 Family history of ischemic heart disease and other diseases of the circulatory system
CPT/HCPCS: 78452; 93017; A9500; J0153